=== PATIENT | female | born 1950 | race Caucasian/White ===

== ENCOUNTER → 2016-07-11 | Outpatient (CLI) | payer MEDICARE, BC, OTHER ==
--- NOTE | 2016-07-11 10:58 | REPMRS ---
Patient History The patient states she has not had a clinical breast exam in over a year. No known family history of cancer. Digital Woman Screen Mammo: July 11, 2016 - Exam #: [id number] Bilateral CC and MLO view(s) were taken. Technologist: Eleni Carlson, Technologist Prior study comparison: January 26, 2015, digital woman screen mammo performed at [facility] to [facility]. June 28, 2013, digital woman screen mammo performed at [facility] to [facility]. FINDINGS: The breast tissue is heterogeneously dense. This may lower the sensitivity of mammography. There has been no change in the appearance of the mammogram from the prior studies. There is a moderate amount of residual fibroglandular tissue which is fairly symmetric. There is no interval development of dominant mass, areas of architectural distortion, or clustered microcalcification typical of malignancy. ASSESSMENT: BI-RADS/ACR category 1 mammogram. Negative. Recommendation Routine screening mammogram in 1 year (for women over age 40). This mammogram was interpreted with the aid of an FDA-approved computer-aided dectection system. Electronically Signed By: Valdez Currie MD 07/11/16 [id number]
== END ==
LOC: M WHC 10:22
PROVIDERS: ATTEND Emergency Medicine
DX: Z12.31 Encounter for screening mammogram for malignant neoplasm of breast (principal); I10 Essential (primary) hypertension; E78.2 Mixed hyperlipidemia; E55.9 Vitamin D deficiency, unspecified
CPT/HCPCS: 36415; 80053; 80061; 82306; G0202

== ENCOUNTER → 2016-07-11 | Outpatient (CLI) | payer MEDICARE, BC, OTHER ==
[2016-07-11 10:27] LABS: ALBUMIN 3.7 GM/DL (3.2-5.2); ALBUMIN/GLOBULIN RATIO 1.16 (1.00-1.93); ALKALINE PHOSPHATASE 83 U/L (45-117); ALT/SGPT 124 U/L (12-78); ANION GAP 6 MEQ/L (8-16); AST/SGOT 69 U/L (15-37); BILIRUBIN,TOTAL 0.5 MG/DL (0.2-1.0); BLOOD UREA NITROGEN 17 MG/DL (7-18); CALCIUM LEVEL 8.7 MG/DL (8.8-10.2); CARBON DIOXIDE LEVEL 29 MEQ/L (21-32); CHLORIDE LEVEL 109 MEQ/L (98-107); CHOLESTEROL LEVEL 148 MG/DL (<200); GLOMERULAR FILTRATION RATE > 60.0 (>45); GLUCOSE, FASTING 88 MG/DL (80-110); POTASSIUM SERUM 4.1 MEQ/L (3.5-5.1); SODIUM LEVEL 144 MEQ/L (136-145); TOTAL PROTEIN 6.9 GM/DL (6.4-8.2); TRIGLYCERIDES LEVEL 83 MG/DL (<150)
== END ==
LOC: M LAB 09:19
PROVIDERS: ATTEND Emergency Medicine
DX: I10 Essential (primary) hypertension (principal); E78.2 Mixed hyperlipidemia; E55.9 Vitamin D deficiency, unspecified

== ENCOUNTER → 2016-08-25 | Outpatient (CLI) | payer MEDICARE, BC, OTHER ==
[~2016-08-25] MED LIST: ATOR1TAB19 PO; CALC600T10 PO; CALCCHW8 PO; LASI20TA PO; LOSA50TA20 PO; MULT1TAB18 PO; VITA200016 PO; ZOFR4TAB3 PO
--- NOTE | 2016-08-25 10:01 | REP ---
KUB, ONE VIEW: HISTORY: Constipation. A small amount of air is present in small and large intestine. There are no air fluid levels or dilated loops of intestine. There is no pneumoperitoneum. Degenerative change is present in the spine. IMPRESSION: Nonspecific bowel gas pattern. Signed by Papito Brito MD 08/25/2016 10:02 A
== END ==
LOC: M RAD 09:28
PROVIDERS: ATTEND Family Medicine
DX: K59.00 Constipation, unspecified (principal)

== ENCOUNTER 2016-08-29 13:53 | Inpatient (IN) | payer MEDICARE, BC, OTHER ==
[~2016-08-29] VITALS: Ht 157.5 cm; Wt 58.0 kg
[2016-08-29] MEDS ORDERED: MULT1TAB18 PO (14:05)
[2016-08-29] MEDS ORDERED: VITA200016 PO (14:05)
[2016-08-29] MEDS ORDERED: LOSA50TA20 PO (14:05)
[2016-08-29] MEDS ORDERED: ATOR1TAB19 PO (14:05)
[2016-08-29] MEDS ORDERED: NS 1,000 ML IV ONE (15:00)
[2016-08-29] MEDS ORDERED: ONDANSETRON 4MG/2ML VIAL (J2405) IV ONE (15:00)
[2016-08-29] MEDS ORDERED: GASTROGRAFIN SOLUTION 30ML (Q9963) As Ordered ONE (15:07)
[2016-08-29 15:19] LABS: BASO % 0.5 % (0.0-1.0); EOS # 0.1 K/mm3 (0.0-0.50); EOS % 1.5 % (0.0-3.0); LARGE UNSTAINED CELL # 0.1 K/mm3 (0.0-0.4); LARGE UNSTAINED CELL % 0.9 % (0.0-4.0); LYMPH # 1.3 K/mm3 (1.5-4.5); LYMPH % 18.8 % (24.0-44.0); MEAN CORPUSCULAR HEMOGLOBIN 28.2 pg (27.0-33.0); MEAN CORPUSCULAR HGB CONC 32.9 g/dl (32.0-36.5); MEAN CORPUSCULAR VOLUME 85.7 fl (80.0-96.0); MONO # 0.5 K/mm3 (0.0-0.8); MONO % 7.2 % (0.0-5.0); NEUTROPHILS # 4.6 K/mm3 (1.8-7.7); NEUTROPHILS % 71.1 % (36.0-66.0); PLATELET COUNT, AUTOMATED 393 k/mm3 (150-450); RED CELL DISTRIBUTION WIDTH 12.2 % (11.5-14.5); WHITE BLOOD COUNT 6.4 K/mm3 (4.0-10.0)
[2016-08-29] MEDS ORDERED: GASTROGRAFIN SOLUTION 30ML (Q9963) PO ONE ×2 (15:20→15:50)
[2016-08-29 15:51] LABS: ALBUMIN 3.1 GM/DL (3.2-5.2); ALBUMIN/GLOBULIN RATIO 0.72 (1.00-1.93); ALKALINE PHOSPHATASE 80 U/L (45-117); ALT/SGPT 34 U/L (12-78); AMYLASE 60 U/L (25-115); ANION GAP 9 MEQ/L (8-16); AST/SGOT 45 U/L (15-37); BILIRUBIN,DIRECT 0.1 MG/DL (0.0-0.2); BILIRUBIN,TOTAL 0.4 MG/DL (0.2-1.0); BLOOD UREA NITROGEN 15 MG/DL (7-18); CARBON DIOXIDE LEVEL 27 MEQ/L (21-32); CHLORIDE LEVEL 102 MEQ/L (98-107); CREATININE FOR GFR 0.97 MG/DL (0.55-1.02); GLOMERULAR FILTRATION RATE > 60.0 (>45); GLUCOSE, FASTING 101 MG/DL (80-110); POTASSIUM SERUM 3.7 MEQ/L (3.5-5.1); SODIUM LEVEL 138 MEQ/L (136-145); TOTAL PROTEIN 7.4 GM/DL (6.4-8.2)
[2016-08-29] MEDS ORDERED: ISOVUE-370 76% 100ML VIAL (Q9967) As Ordered ONE (16:45)
[2016-08-29] MEDS ORDERED: CALCCHW8 PO (18:06)
[2016-08-29] MEDS ORDERED: CALC600T10 PO (18:07)
--- NOTE | 2016-08-29 20:02 | HPEPDOC ---
General Date of Admission Primary Care Physician: JESSICA CHAUDHARY MD Attending Physician: PABLO HERNANDES MD Chief Complaint The patient is a 65-year-old female admitted with a reason for visit of Abd Pain. Source: Patient, Family, RN notes reviewed, Old records Exam Limitations: No limitations Timing/Duration: Week(s) (he) Associated Symptoms: Cough, Chills (intermittent, sometimes teeth rattling), Loss of appetite, Shortness of breath, Weakness History of Present Illness Ms. Oliveira is a 65-year-old female who presents to [facility]'s emergency Department with abdominal pain and bloating. She is accompanied by her . Past medical history significant for hypertension, dyslipidemia, history of hypoglycemia, osteopenia, history of fecal incontinence, history of hyperplastic polyp. Patient states that prior to 3 weeks ago she was in good health when she developed "pressure in her butt" that she thought felt somewhat like constipation. Patient took milk of magnesia and subsequently had 2 episodes of nonbloody, mucoid, loose diarrhea. She has since had 5-10 daily episodes of loose, mucoid, nonbloody diarrhea. She states that she felt as if she was coming down with a viral syndrome or upper respiratory infection she developed a runny nose, nonproductive cough, and some mild throat pain. She also developed to cold sores on her lower lip for which she took Abreva. She presented to her primary care provider's office last week where an abdominal x- ray was obtained. Per patient, no stool was identified on x-ray and patient was advised to start a probiotic. Over the last week patient has had intermittent and inconsistent crampy abdominal pain and over the last 4 days has had a nonproductive cough with shortness of breath. Patient presented to primary care provider today and was advised to present to the emergency department. Besides positive review of systems listed above all other review of systems were negative. Hospitalist service was consulted and patient was subsequently admitted for further medical management. Home Medications Scheduled (Multi Vitamin) 1 Tab Tab, 1 TAB PO DAILY, (Reported) Atorvastatin Calcium (Atorvastatin Calcium) 10 Mg Tab, 10 MG PO DAILY, (Reported ) Calcium (Calcium) 600 Mg Tab, 1,200 MG PO DAILY, (Reported) Losartan Potassium (Losartan Potassium) 50 Mg Tab, 50 MG PO DAILY, (Reported) Vitamin D (Vitamin D) 2,000 Unit Cap, 2,000 UNIT PO DAILY, (Reported) Allergies Coded Allergies: Amoxicillin (Verified Allergy, Intermediate, RASH, 08/29/16) Past Medical History Medical History 1. Hypertension 2. Dyslipidemia 3. History of hypoglycemia 4. Osteopenia based on bone density scan 5. History of fecal incontinence 6. History of hyperplastic colonic polyp Surgical History 1. Colonoscopy 2. [employer] osteotomy 3. [employer] bunionectomy on the left 4. Encapsulated bartholian gland removal 5. 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 and international travel, most recent travel to [facility] 2 years ago Admits to a cat in the home Denies environmental exposures Review of Symptoms Constitutional: Reports: Chills (intermittent bone rattling chills), Weakness, Denies: Fever, Night Sweats Eyes: Denies: Vision change, Other (denies blurry vision, transient vision loss ) ENT: Reports: Sore Throat, Denies: Head Aches, Sinus Congestion, Post Nasal Drip, Epistaxis Skin: Denies: Rash, Lesions Pulmonary: Reports: Dyspnea, Cough (nonproductive), Denies: Pleuritic Chest Pain Cardiovascular: Denies: Chest Pain, Palpitations, Orthopnea, Paroxysmal Noc. Dyspnea, Edema, Lt Headedness Gastrointestinal: Reports: Diarrhea (5-10 daily episodes of nonbloody, loose, mucoid diarrhea), Other Symptoms (abdominal bloating), Denies: Nausea, Vomiting, Abdominal Pain, Constipation, Melena, Hematochezia Genitourinary: Denies: Dysuria, Frequency, Incontinence, Hematuria Hematologic: Denies: Bruising Endocrine: Reports: Polydipsia, Denies: Polyphagia Musculoskeletal: Reports: Other Symptoms (leg cramps), Denies: Neck Pain, Back Pain, Muscle Pain Neurological: Reports: Weakness, Denies: Numbness Physical Examination General Exam: Positive: Alert, Cooperative, No Acute Distress Eye Exam: Positive: PERRLA, Conjunctiva & lids normal, EOMI, Negative: Sclera icteric, Ptosis ENT Exam: Positive: Atraumatic, Mucous membr. moist/pink, Tongue Midline, Pharyngeal Edema (mild), Nares Patent Neck Exam: Positive: Supple, Negative: thyromegaly, +2 carotid pulse wo bruit, Lymphadenopathy Chest Exam: Positive: Clear to auscultation, Normal air movement, Diminished ( in the bilateral bases) Heart Exam: Positive: Rate Normal, Tachycardic, Regular Rhythm, Normal S1, Normal S2, Negative: Gallops, Murmurs, Rubs Telemetry: Positive: Tachycardia Abdomen Exam: Positive: Normal bowel sounds, Soft, Tenderness (to palpation), Other (distended, dull to percussion, rebound tenderness to the right quadrants) Extremity Exam: Positive: Normal pulses, Negative: Clubbing, Cyanosis, Edema Skin Exam: Positive: Nl turgor and temperature Neuro Exam: Positive: Normal Speech, Strength at 5/5 X4 ext Vital Signs Vital Signs Date Time Temp Pulse Resp B/P (MAP) Pulse Ox O2 Delivery O2 Flow Rate FiO2 08/29/16 15:19 08/29/16 13:54 97.3 114 16 97 Room Air Laboratory Data Labs 24H Laboratory Tests 2 08/29/16 15:03: Urine Appearance CLEAR, Urine Color YELLOW, Urine pH 6.0, Urine Specific [place] 1.015, Urine Protein NEGATIVE, Urine Glucose (UA) NEGATIVE, Urine Ketones NEGATIVE, Urine Urobilinogen 0.2, Urine Bilirubin NEGATIVE, Urine Leukocyte Esterase NEGATIVE, Urine Blood NEGATIVE, Urine Nitrite NEGATIVE, Urine WBC (Auto) 0, Urine RBC (Auto) 1, Urine Hyaline Casts (Auto) 2, Urine Bacteria (Auto) 1+H, Urine Squamous Epithelial Cells 0, Urine Mucus (Auto) SMALL , Urine Sperm (Auto) 08/29/16 15:10: White Blood Count 6.4, Red Blood Count 4.59, Hemoglobin 13.0, Hematocrit 39.3, Mean Corpuscular Volume 85.7, Mean Corpuscular Hemoglobin 28.2, Mean Corpuscular Hemoglobin Concent 32.9, Red Cell Distribution Width 12.2, Platelet Count 393, Neutrophils (%) (Auto) 71.1H, Lymphocytes (%) (Auto) 18.8L, Monocytes (%) (Auto) 7.2H, Eosinophils (%) (Auto) 1.5, Basophils (%) (Auto) 0.5 , Neutrophils # (Auto) 4.6, Lymphocytes # (Auto) 1.3L, Monocytes # (Auto) 0.5, Eosinophils # (Auto) 0.1, Basophils # (Auto) 0.0, Large Unclassified Cells % 0.9 , Large Unclassified Cells # 0.1, Anion Gap 9, Glomerular Filtration Rate > 60.0 , Calcium Level 9.0, Aspartate Amino Transf (AST/SGOT) 45H, Alanine Aminotransferase (ALT/SGPT) 34, Alkaline Phosphatase 80, Total Bilirubin 0.4, Direct Bilirubin 0.1, Total Protein 7.4, Albumin 3.1L, Albumin/Globulin Ratio 0.72L, Amylase Level 60, Lipase 157 CBC/BMP Laboratory Tests 08/29/16 15:10 Red Blood Count 4.59, Mean Corpuscular Volume 85.7, Mean Corpuscular Hemoglobin 28.2, Mean Corpuscular Hemoglobin Concent 32.9, Red Cell Distribution Width 12.2 , Neutrophils (%) (Auto) 71.1 H, Lymphocytes (%) (Auto) 18.8 L, Monocytes (%) ( Auto) 7.2 H, Eosinophils (%) (Auto) 1.5, Basophils (%) (Auto) 0.5, Neutrophils # (Auto) 4.6, Lymphocytes # (Auto) 1.3 L, Monocytes # (Auto) 0.5, Eosinophils # (Auto) 0.1, Basophils # (Auto) 0.0 RAD Interpretation STUDY: CT of the abdomen and pelvis with IV contrast Rad Actions: Wet Read Reviewed (6 cm L ovarian mass with ascites and B\\L pl effs and evidence of omental and peritoneal mets) Assessment/Plan Ms. Oliveira is a 65-year-old female with a past medical history significant for hypertension, dyslipidemia, history of hypoglycemia, osteopenia , history of fecal incontinence, history of hyperplastic polyp the presented with abdominal pain and bloating. CT of the abdomen and pelvis with IV contrast shows a left ovarian mass with ascites, bilateral pleural effusions, and omental and peritoneal metastasis. Diagnosis to be confirmed. Plan / VTE VTE Prophylaxis Ordered?: Yes (TEDs and sequentials with knee-high compression stockings) Plan Plan Abdominal pain Likely related to ascites secondary to left ovarian mass and omental and peritoneal metastasis. Therapeutic paracentesis ordered with evaluation of ascites fluid. Could consider CT-guided biopsy of left ovarian mass after therapeutic paracentesis with oncology consult. Could also consider obtaining CT of the chest with contrast and CT of the head without contrast to evaluate for metastasis. Obstetrics and gynecology consulted. Pleural effusions Likely secondary to abdominal ascites. Blood pressure stable at 140/78, so able to diurese fluid with Lasix. Diarrhea Obtaining GI panel and stool for occult blood to evaluate for potential causes for persistent nonbloody, loose, mucoid stools. Upper respiratory symptoms Symptoms of cough, runny nose, sore throat without white count or fever. Obtaining chest x-ray to evaluate for underlying respiratory illness. Hypertension Continue current home medication regimen. Dyslipidemia Continue current home medication regimen. Disposition Admitted to progressive care unit Anticipated hospitalization: 2 nights Attending: Dr. Grnat Solder Making Laborer: Obstetrics and gynecology CODE STATUS: DNR/DNI Diet: Continue Current (2 g sodium) Activity: Continue Current (activity as tolerated) Diagnostics: Check Labs, Repeat Labs in AM, Obtain Cultures Advanced Directives: Do Not Resuscitate (DNR), Do Not Intubate (DNI) EMIL SANTO-I August 29, 2016 20:01
[2016-08-29 22:20] VITALS: BP 126/64
[2016-08-29] MEDS ORDERED: SLF 3 ML SYR IV PRN (23:00)
[2016-08-29] MEDS: ACETAMINOPHEN TAB 650MG DOSE (2X325MG) PO PRN (23:24)
[2016-08-29] MEDS: FUROSEMIDE 40 MG/4 ML VIAL (J1940) IV SCH (23:25)
[2016-08-30] VITALS (9 sets, daily range): BP systolic 102–141; BP diastolic 58–71
[2016-08-30] MEDS: SLF 3 ML SYR IV SCH ×3 (05:42→21:23)
[2016-08-30 05:57] LABS: MEAN CORPUSCULAR HEMOGLOBIN 28.1 pg (27.0-33.0); MEAN CORPUSCULAR HGB CONC 32.7 g/dl (32.0-36.5); MEAN CORPUSCULAR VOLUME 85.9 fl (80.0-96.0); WHITE BLOOD COUNT 4.7 K/mm3 (4.0-10.0)
[2016-08-30 06:14] LABS: ANION GAP 10 MEQ/L (8-16); BLOOD UREA NITROGEN 11 MG/DL (7-18); CALCIUM LEVEL 8.4 MG/DL (8.8-10.2); CARBON DIOXIDE LEVEL 25 MEQ/L (21-32); CHLORIDE LEVEL 107 MEQ/L (98-107); CREATININE FOR GFR 0.91 MG/DL (0.55-1.02); GLOMERULAR FILTRATION RATE > 60.0 (>45); GLUCOSE, FASTING 94 MG/DL (80-110); POTASSIUM SERUM 3.7 MEQ/L (3.5-5.1); SODIUM LEVEL 142 MEQ/L (136-145)
--- NOTE | 2016-08-30 07:14 | REP ---
REASON: Distended abdomen. COMPARISON: None. Contrast 100 mL Isovue 370. Bilateral pleural effusions are present with suspected bilateral subsegmental atelectatic changes in the lung bases. Scattered low density lesions are seen throughout the liver. There is ascites. Within the peritoneum on the right, adjacent to the hepatic edge, there is a 1.6 cm sized nodular density. Also within the omentum, there is a broad-band omental cake. This nearly spans the breadth of the abdomen. The bowel loops are seen floating within the ascitic fluid. There is no intestinal obstruction. There is no evidence of free air. The pancreas, adrenal glands, and spleen are unremarkable. There are multiple bilateral renal cysts the largest of which is on the left measuring 6.2 cm. The abdominal aorta is within normal limits. There is a large mass in the pelvis on the left which measures 6.3 x 4.1 x 6 cm and is most consistent with an enhancing ovarian mass. Bone window technique throughout the exam shows the osseous structures to be within normal limits for the patient's age. IMPRESSION: 1. 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 Certainly, all of this needs to be correlated clinically. 2. Other findings as described above. Signed by Steffen Dela Cruz DO 08/30/2016 01:59 P
[2016-08-30] MEDS: FUROSEMIDE 40 MG/4 ML VIAL (J1940) IV SCH ×2 (08:16→21:24)
[2016-08-30] MEDS: LOSARTAN 50 MG TAB PO SCH (08:17)
[2016-08-30] MEDS: ATORVASTATIN 10 MG TAB PO SCH (08:17)
[2016-08-30] MEDS: VITAMIN D 1,000 INTERNATIONAL UNITS TABLET PO SCH (08:17)
--- NOTE | 2016-08-30 09:12 | REP ---
PORTABLE CHEST: AP portable view of the chest is performed and compared to prior study of 12/19/2011. There are moderate bilateral pleural effusions. There are mild bibasilar infiltrates/atelectasis. The heart is not significantly enlarged. IMPRESSION: Moderate bilateral effusions with adjacent bibasilar atelectasis/infiltrate. Signed by Valdez Currie MD 08/30/2016 04:05 P
[2016-08-30] MEDS ORDERED: DIAPER RELIEF OINT (DESITIN) 60GM TOP PRN (11:00)
[2016-08-30 13:07] LABS: RBC ASCITES FLUID < 10 (<10mm3 cells/uL); TNC ASCITES FLUID 591 cells/uL (0-20)
[2016-08-30 13:15] LABS: BF DIFF IF INDICATED? YES (NO)
[2016-08-30 13:22] LABS: SPEC. GRAVITY BODY FLUIDS 1.029 (NOT ESTABLISHED)
[2016-08-30 13:34] LABS: CC BF DIFF EXAM CYTOCENTRIFUGE
[2016-08-30 13:53] LABS: TOTAL PROTEIN, BODY FLUID 4.5 G/DL (NOT ESTABLISHED)
--- NOTE | 2016-08-30 14:31 | IPNPDOC ---
Date Seen The patient was seen on 08/30/16. Progress Note SUBJECTIVE: Ms. Oliveira is a 65-year-old female was evaluated at bedside this morning. She reports that her shortness of breath has improved secondary to the Lasix. Patient will be going for a therapeutic paracentesis later in the day. Oncology is also being consulted and will evaluate the patient later in the day. OBJECTIVE PHYSICAL EXAMINATION: VITAL SIGNS: Please see below. GENERAL: Pleasant female resting comfortably in hospital bed upon evaluation, well-nourished, well-developed, in no apparent distress HEENT: Atraumatic, normocephalic, PERRL, EOMI, oral mucosa appears pink and moist, nasal septum appears midline CARDIOVASCULAR: Regular rate and rhythm, normal S1 and S2, no murmur, rub, click appreciated RESPIRATORY: Clear to auscultation bilaterally, adequate inspiratory and expiratory airway excursion, still somewhat diminished airway excursion in the bases bilaterally ABDOMINAL: Skin appears warm, dry, intact, mildly distended, dull to percussion throughout, no bruits appreciated, some resistance noted with palpation throughout bowel sounds appreciated EXTREMITIES: All 4 extremities appropriately, peripheral pulses appreciated bilaterally in upper and lower extremities, equal, symmetrical, +2/4 NEUROLOGICAL: Cranial nerves II through XII appear grossly intact PSYCHOLOGICAL: Alert and affect appear appropriate LABORATORY DATA: Please see below. MICROBIOLOGY: Please see below. DVT prophylaxis ordered?: TEDs and sequentials with knee-high compression stockings ASSESSMENT AND PLAN: Ms. Oliveira is a 65-year-old female with a past medical history significant for hypertension and dyslipidemia who presented with persistent diarrhea, abdominal pain and bloating, and found to have a 6 cm left ovarian mass with abdominal ascites and omental and peritoneal metastasis. PROBLEMS: 1. Abdominal ascites: Therapeutic paracentesis performed with SAAG analysis of 0.6. Abdominal ascites less likely a result of portal hypertension. Cytology and pathology are pending. More likely result of metastatic disease. Oncology has been consulted and will evaluate patient. CA-125 3920.6. 2. Bilateral pleural effusions: Patient reports subjective improvement with Lasix. Decrease shortness of breath. Continue with Lasix. 3. Fever: 100.6 overnight. Treated with Tylenol. Resolved. 4. Diarrhea: GI panel was negative. Desitin has been added secondary to cutaneous irritation. 5. Hypertension: Continue patient on Cozaar. 6. Dyslipidemia: Continue patient on Lipitor. DISPOSITION: Currently admitted to progressive care unit. Therapeutic paracentesis performed. Verbally discussed obtaining ovarian mass biopsy with radiology. Their suggestion was to refer patient as biopsy here might results in rupture of the mass. Oncology to evaluate patient. Potential discharge in the next 24 hours. VS, I&O, 24H, Fishbone Vital Signs/I&O Vital Signs Date Time Temp Pulse Resp B/P (MAP) Pulse Ox O2 Delivery O2 Flow Rate FiO2 08/30/16 13:45 99.4 89 18 123/58 (79) 94 Room Air I&O- Last 24 Hours up to 6 AM 08/30/16 06:00 Output Total 700 ml Balance -700 ml Laboratory Data 24H LABS Laboratory Tests 2 08/29/16 15:03: Urine Appearance CLEAR, Urine Color YELLOW, Urine pH 6.0, Urine Specific [place] 1.015, Urine Protein NEGATIVE, Urine Glucose (UA) NEGATIVE, Urine Ketones NEGATIVE, Urine Urobilinogen 0.2, Urine Bilirubin NEGATIVE, Urine Leukocyte Esterase NEGATIVE, Urine Blood NEGATIVE, Urine Nitrite NEGATIVE, Urine WBC (Auto) 0, Urine RBC (Auto) 1, Urine Hyaline Casts (Auto) 2, Urine Bacteria (Auto) 1+H, Urine Squamous Epithelial Cells 0, Urine Mucus (Auto) SMALL , Urine Sperm (Auto) 08/29/16 15:10: White Blood Count 6.4, Red Blood Count 4.59, Hemoglobin 13.0, Hematocrit 39.3, Mean Corpuscular Volume 85.7, Mean Corpuscular Hemoglobin 28.2, Mean Corpuscular Hemoglobin Concent 32.9, Red Cell Distribution Width 12.2, Platelet Count 393, Neutrophils (%) (Auto) 71.1H, Lymphocytes (%) (Auto) 18.8L, Monocytes (%) (Auto) 7.2H, Eosinophils (%) (Auto) 1.5, Basophils (%) (Auto) 0.5 , Neutrophils # (Auto) 4.6, Lymphocytes # (Auto) 1.3L, Monocytes # (Auto) 0.5, Eosinophils # (Auto) 0.1, Basophils # (Auto) 0.0, Large Unclassified Cells % 0.9 , Large Unclassified Cells # 0.1, Anion Gap 9, Glomerular Filtration Rate > 60.0 , Calcium Level 9.0, Aspartate Amino Transf (AST/SGOT) 45H, Alanine Aminotransferase (ALT/SGPT) 34, Alkaline Phosphatase 80, Total Bilirubin 0.4, Direct Bilirubin 0.1, Total Protein 7.4, Albumin 3.1L, Albumin/Globulin Ratio 0.72L, Amylase Level 60, Lipase 157 08/30/16 05:24: Anion Gap 10, Glomerular Filtration Rate > 60.0, Calcium Level 8.4L, Blood Urea Nitrogen 11, Creatinine 0.91, Sodium Level 142, Potassium Level 3.7, Chloride Level 107, Carbon Dioxide Level 25 08/30/16 10:58: CA 125 Antigen 3920.6H 08/30/16 12:20: Body Fluid Source ASCITES, Body Fluid Color PALE YELLOW, Body Fluid Appearance HAZY, Body Fluid Specific [place] 1.029, Body Fluid RBC (Auto) < 10, Body Fluid Total Nucleated Cells 591H, Body Fluid Neutrophils 2, Body Fluid Lymphocytes 64 , Body Fluid Monocytes/Macrophages 34, Body Fluid Glucose Source ASCITES, Body Fluid Glucose 106, Body Fluid Protein Source ASCITES, Body Fluid Total Protein 4.5, Body Fluid Albumin Source ASCITES, Body Fluid Albumin 2.5 CBC/BMP Laboratory Tests 08/29/16 15:10 Red Blood Count 4.59, Mean Corpuscular Volume 85.7, Mean Corpuscular Hemoglobin 28.2, Mean Corpuscular Hemoglobin Concent 32.9, Red Cell Distribution Width 12.2 , Neutrophils (%) (Auto) 71.1 H, Lymphocytes (%) (Auto) 18.8 L, Monocytes (%) ( Auto) 7.2 H, Eosinophils (%) (Auto) 1.5, Basophils (%) (Auto) 0.5, Neutrophils # (Auto) 4.6, Lymphocytes # (Auto) 1.3 L, Monocytes # (Auto) 0.5, Eosinophils # (Auto) 0.1, Basophils # (Auto) 0.0 08/30/16 05:24 Red Blood Count 3.97 L, Mean Corpuscular Volume 85.9, Mean Corpuscular Hemoglobin 28.1, Mean Corpuscular Hemoglobin Concent 32.7, Red Cell Distribution Width 12.0, Calcium Level 8.4 L Microbiology Microbiology 08/30/16 Acid Fast Stain, Received Pending 08/30/16 Mycobacterial Culture, Received Pending 08/30/16 Gram Stain, Received Pending 08/30/16 Body Fluid Culture, Received Pending 08/30/16 Gastrointestinal Tract Panel (PCR) - Final, Complete EMIL SANTO-Michelle August 30, 2016 14:31
[2016-08-30] MEDS: ACETAMINOPHEN TAB 650MG DOSE (2X325MG) PO PRN (21:28)
[2016-08-30] MEDS ORDERED: ISOVUE-370 76% 100ML VIAL (Q9967) As Ordered ONE (22:52)
--- NOTE | 2016-08-30 23:20 | REPUSA ---
CT angiogram of the chest Clinical statement: metastasis, shortness of breath. Technique: Multiple axial CT images were obtained from the thoracic inlet through the upper abdomen a fter a bolus administration of nonionic intravenous contrast. Coronal and sagittal reconstructions we re also obtained. Comparison: None. Findings: The pulmonary arteries are well-opacified with contrast, with no intraluminal filling defec ts to suggest embolism. The thoracic aorta is unremarkable. Thyroid gland is within normal limits. Th ere is no thoracic lymphadenopathy. There are moderate sized bilateral pleural effusions with lower l obe atelectasis. Limited imaging of the upper abdomen demonstrates moderate abdominal ascites. Cysts are seen within both kidneys and the liver. There are no suspicious osseous lesions. Impression: 1. No evidence of pulmonary embolism. 2. No evidence for metastatic disease. 3. Moderate sized bilateral pleural effusions and lower lobe atelectasis/infiltrate. 4. Simple cyst seen within the liver and both kidneys. 5. Small amount of upper abdominal ascites.
[2016-08-31 03:25] VITALS: BP 122/65
[2016-08-31] MEDS: SLF 3 ML SYR IV SCH (05:48)
--- NOTE | 2016-08-31 05:59 | REP ---
ULTRASOUND GUIDED PARACENTESIS: The procedure was performed under the direct supervision of Dr. Currie. The risks and benefits of the procedure were explained to the patient and informed consent was obtained. The largest pocket of fluid was localized in the right flank using ultrasound guidance. The skin was prepped and draped in a sterile fashion. 1% lidocaine was used as a local anesthetic. An 8-Bulgarian multi-side hole catheter was inserted using trocar technique. 3750 mL of yellow fluid was withdrawn and sent to the lab. The patient tolerated the procedure well and there were no immediate complications. Reviewed by FROILAN Cesar 08/31/2016 03:36 PEdited and Signed by Vadlez Currie MD 08/31/2016 04:50 P
[2016-08-31 06:12] LABS: MEAN CORPUSCULAR HEMOGLOBIN 28.1 pg (27.0-33.0); MEAN CORPUSCULAR VOLUME 85.3 fl (80.0-96.0); RED CELL DISTRIBUTION WIDTH 12.2 % (11.5-14.5); WHITE BLOOD COUNT 6.5 K/mm3 (4.0-10.0)
[2016-08-31 06:21] LABS: ANION GAP 9 MEQ/L (8-16); BLOOD UREA NITROGEN 13 MG/DL (7-18); CALCIUM LEVEL 8.2 MG/DL (8.8-10.2); CARBON DIOXIDE LEVEL 26 MEQ/L (21-32); CHLORIDE LEVEL 103 MEQ/L (98-107); CREATININE FOR GFR 0.92 MG/DL (0.55-1.02); GLOMERULAR FILTRATION RATE > 60.0 (>45); GLUCOSE, FASTING 90 MG/DL (80-110); POTASSIUM SERUM 3.4 MEQ/L (3.5-5.1); SODIUM LEVEL 138 MEQ/L (136-145)
[2016-08-31] MEDS ORDERED: POTASSIUM CHLORIDE 10 MEQ SR TABLET PO ONE (07:45)
[2016-08-31 08:00] VITALS: BP 127/67
[2016-08-31] MEDS ORDERED: LASI20TA PO (08:19)
[2016-08-31] MEDS ORDERED: ZOFR4TAB3 PO (08:43)
[2016-08-31 09:01] VITALS: BP 115/65
[2016-08-31] MEDS: VITAMIN D 1,000 INTERNATIONAL UNITS TABLET PO SCH (09:01)
[2016-08-31] MEDS: LOSARTAN 50 MG TAB PO SCH (09:01)
[2016-08-31] MEDS: ATORVASTATIN 10 MG TAB PO SCH (09:01)
[2016-08-31] MEDS: FUROSEMIDE 40 MG/4 ML VIAL (J1940) IV SCH (09:01)
--- NOTE | 2016-08-31 10:04 | CR ---
DATE OF CONSULTATION: 08/30/2016 MEDICAL ONCOLOGY INPATIENT CONSULTATION I was asked by the hospitalist service under Dr. Grant to consult on this patient for medical oncology management recommendations. Rand Oliveira is a 65-year-old woman at baseline very well, few medical problems, within the last month developed progressive fatigue, abdominal distention, a little shortness of breath, and finally some nausea and difficulty with bowel movements. She was seen a few times by her primary care doctor. Initially, some constipation diagnosed. She developed loose stool and was started on probiotics. Finally, her symptoms progressed, and she presented to her primary care provider yesterday with progressive abdominal discomfort, shortness of breath, and was referred to the hospital for admission. Abdomen and pelvis CT in the hospital demonstrated a large left adnexal mass up to 6.3 cm with enhancement, scattered low-density lesions throughout the liver, ascites in the peritoneum, and omental caking. Plain chest x-ray demonstrated bilateral pleural effusions moderate with mild basilar infiltrates. No obvious masses or cardiomegaly. CA-125 is 3920. A paracentesis has been performed, and cytology is pending. At baseline, Rand is retired, well fit, and busy, engaged in lots of civic activities. She has no strong family history of cancer, breast, or ovarian cancer. PAST MEDICAL HISTORY: Hypertension, dyslipidemia, hypoglycemia, osteopenia, colon polyps, fecal incontinence. PAST SURGICAL HISTORY: Colonoscopy, osteotomy, bunionectomy, Bartholin gland removal, partial hysterectomy. ALLERGIES: Are to amoxicillin. HOME MEDICATIONS: - calcium 600 mg two tablets daily - losartan 50 mg daily - vitamin D 2000 international units daily SOCIAL HISTORY: Never smoker. Rare alcohol. Retired. Lives with her in [place]. FAMILY HISTORY: A maternal grandmother had pancreatic cancer and lung cancer. No other cancers in the family. REVIEW OF SYSTEMS: The patient acknowledges gradual abdominal distention in the last week. Prior to that, progressive fatigue, shortness of breath, and some chest discomfort. She denies vaginal bleeding, bloody stool, nausea, or vomiting until the last few days. She denies unintended weight loss recently. Remainder of 12-system review is negative. PHYSICAL EXAMINATION: Limited. Vital signs: Temperature 100.9, blood pressure 134/60, heart rate 100, respiratory rate 18, pulse oximetry 96. The patient's normal weight. Appearing middle-aged woman. Well-groomed. No distress. She is reclining in bed. On examination, she has mildly distended abdomen, which is soft and nontender. No rebound tenderness. No palpable mass. No inguinal adenopathy. There is 1+ bilateral pedal edema. LABORATORIES: Were reviewed. CBC notable for mild normocytic anemia, hemoglobin and hematocrit 11 and 34. Electrolytes normal. Albumin 3.1, AST 45. CA-125 3900. IMPRESSION: Metastatic ovarian cancer is the most likely diagnosis in this clinical setting. Primary fallopian tube or primary peritoneal adenocarcinoma are also in the differential diagnosis. However, clinically, with a CA-125 nearly 4000, dominant left adnexal mass. and bulky ascites with omental caking, a primary peritoneal-type carcinoma, such as ovarian fallopian tube is the most likely diagnosis. I discussed the case with Jose Bravo MD, of gynecology (CARDI[facility]ULMONARY SUPER[facility]OR) oncology in [place] after the patient said she would like to be seen by him. Typically, advanced ovarian carcinoma is treated with neoadjuvant chemotherapy, three cycles of carboplatin and Taxol, with good response. The patient to go to surgery for optimal debulking and then receive adjuvant chemotherapy, three more cycles of carboplatin and Taxol. A tissue diagnosis is optimal. If the paracentesis fails to reveal a diagnosis, thoracentesis could be performed; consideration of a liver biopsy could be made. Unfortunately, however, the liver nodules appear to be small. I discussed all of the above with Rand and her (with the exception of a potential liver biopsy). I recommend a CT of the chest to rule out a solid tumor in the chest, as this might become important prognostically and diagnostically. Beyond this, as long as she is feeling well, she could discharge and followup with me on Monday of next week. At that point, will have tissue biopsy, hopefully, and could proceed with neoadjuvant chemotherapy. The family was pleased with this plan. PLAN/RECOMMENDATIONS: 1. Chest CT with contrast, rule out solid metastatic lesion. Fully assess effusions. I discussed this with Dr. Grant, who will order the CT. 2. As long as the patient is comfortable and CT had been obtained, she could be discharged home with plan for Monday followup in my office. I have communicated with our nurse navigator, Yani Robles ([phone]), who will help set up the Monday appointment. If there is any doubt, please call Yani prior to the patient's discharge to make sure she has a firm appointment. 3. I spoke with the patient and her extensively tonight. We talked over many things, including the nature of her diagnosis, diagnostic workup, whether or not to see Dr. Bravo or another CARDIOPULMONARY SUPERVISOR oncologist in [place]. She has gotten a good recommendation by Dr. Bravo. I have already spoken with him at her request and with her approval, and we have a working plan that does not require her to be seen by CARDIOPULMONARY SUPERVISOR oncology at the outset as long as we feel confident about her diagnosis before starting empiric treatment. We can finalize all of this on the patient's followup with me on Monday in the office. Thank you for this consult. Please call me her Yani Robles with any interval issues. TIME STATEMENT: A total of 60 minutes was spent [id number] with the patient, more than 50% involved in counseling and coordination of care detailed in the note above. SINCERE
--- NOTE | 2016-08-31 16:22 | DS.PDOC ---
Discharge Summary General Date of Admission August 29, 2016 at 19:36 Date of Discharge 08/31/2016 Primary Care Physician: JESSICA CHAUDHARY MD Attending Physician: REINA MALONE MD Specialist/Consultants Involve: Thelma Wild MD Specialist/Consultants Involve Oncology Discharge Summary PROCEDURES PERFORMED DURING STAY: Ultrasound-guided paracentesis. ADMITTING DIAGNOSES: 1. Abdominal pain. 2. Shortness of breath secondary to pleural effusions. 3. Diarrhea. 4. Hypertension. 5. Dyslipidemia. DISCHARGE DIAGNOSES: 1. Abdominal ascites. 2. Bilateral pleural effusions. 3. Left ovarian mass with omental and peritoneal metastasis. 4. Hypertension. 5. Dyslipidemia. 6. Diarrhea. COMPLICATIONS/CHIEF COMPLAINT: Ascites; Ovarian Mass, Left. HISTORY OF PRESENT ILLNESS: Ms. Oliveira is a 65-year-old female who presents to [facility]'s emergency Department with abdominal pain and bloating. She is accompanied by her . Past medical history significant for hypertension, dyslipidemia, history of hypoglycemia, osteopenia, history of fecal incontinence, history of hyperplastic polyp. Patient states that prior to 3 weeks ago she was in good health when she developed "pressure in her butt" that she thought felt somewhat like constipation. Patient took milk of magnesia and subsequently had 2 episodes of nonbloody, mucoid, loose diarrhea. She has since had 5-10 daily episodes of loose, mucoid, nonbloody diarrhea. She states that she felt as if she was coming down with a viral syndrome or upper respiratory infection she developed a runny nose, nonproductive cough, and some mild throat pain. She also developed to cold sores on her lower lip for which she took Abreva. She presented to her primary care provider's office last week where an abdominal x- ray was obtained. Per patient, no stool was identified on x-ray and patient was advised to start a probiotic. Over the last week patient has had intermittent and inconsistent crampy abdominal pain and over the last 4 days has had a nonproductive cough with shortness of breath. Patient presented to primary care provider today and was advised to present to the emergency department. Besides positive review of systems listed above all other review of systems were negative. Hospitalist service was consulted and patient was subsequently admitted for further medical management. HOSPITAL COURSE: CT of the abdomen and pelvis performed in the emergency department with the result reported below. Patient was admitted to the progressive care unit. Therapeutic paracentesis was performed and 3750mL of straw-colored fluid was drained. Fluid analysis was not likely secondary to portal hypertension according to his [facility] evaluation. Cytology and pathology were sent. Patient's shortness of breath significantly resolved secondary to Lasix administration for bilateral pleural effusions. Patient experienced erythema and irritation to rectal area secondary to diarrhea which was acutely treated with topical cream. Patient reports improvement in symptoms. Patient reported that cough improved during hospitalization as well. Oncology was consulted and recommended obtaining a CA-125, CT of the chest. Oncology had a lengthy discussion with patient about her best available options. CA-125 was obtained and was 3920.06. CT of the chest was also obtained and report is resulted below. Patient shortness of breath and abdominal pain improved significantly. Patient had a febrile episode which was controlled with Tylenol. Hypertension and dyslipidemia were treated with current home medication regimen. Patient improved significantly during her short hospitalization, however just prior to discharge patient had an isolated event of vomiting, nonbilious, nonbloody secondary to taking a sip of water and went down the trachea and stated the esophagus. Patient denied nausea after episode of vomiting and reports that she is at her baseline like to continue with the discharge. Based on clinical evaluation patient was stable for discharge. DISCHARGE MEDICATIONS: Please see below. ALLERGIES: Please see below. PHYSICAL EXAMINATION ON DISCHARGE: VITAL SIGNS: Please see below. GENERAL: Well-nourished, well-developed female resting comfortably in hospital bed upon evaluation and in no apparent distress HEENT: Atraumatic, normocephalic, PERRL, EOMI, oral mucosa appears pink and moist, nasal septum appears midline, nares are patent NECK: Soft, supple, trachea midline, no lymphadenopathy appreciated CARDIOVASCULAR EXAMINATION: Regular rate and rhythm, normal S1 and S2, no murmur , rub, click appreciated RESPIRATORY EXAMINATION: Clear to auscultation bilaterally, adequate inspiratory and expiratory airway excursion, no wheeze, rhonchi, crackles appreciated ABDOMINAL EXAMINATION: Mild distention appears improved, soft, nontender, bowel sounds appreciated EXTREMITIES: Moving all 4 extremities appropriately, skin is warm, dry, intact, upper and lower extremity pulses are appreciated bilaterally, equal, symmetrical , +2/4, no edema SKIN: Warm, dry, intact, no lesions central rashes appreciated NEUROLOGICAL EXAMINATION: Cranial nerves II through XII appear grossly intact PSYCHIATRIC EXAMINATION: Mood and affect appear appropriate LABORATORY DATA: Please see below. IMAGING: CT of the abdomen and pelvis with IV and oral contrast Bilateral pleural effusions are present with suspected bilateral subsegmental atelectatic changes in the lung bases. Scattered low density lesions are seen throughout the liver. There is ascites. Within the peritoneum on the right, adjacent to the hepatic edge, there is a 1.6 cm sized nodular density. Also within the omentum, there is a broad-band omental cake. This nearly spans the breadth of the abdomen. The bowel loops are seen floating within the ascitic fluid. There is no intestinal obstruction. There is no evidence of free air. The pancreas, adrenal glands, and spleen are unremarkable. There are multiple bilateral renal cysts the largest of which is on the left measuring 6.2 cm. The abdominal aorta is within normal limits. There is a large mass in the pelvis on the left which measures 6.3 x 4.1 x 6 cm and is most consistent with an enhancing ovarian mass. Bone window technique throughout the exam shows the osseous structures to be within normal limits for the patient's age. Portable chest x-ray IMPRESSION: Moderate bilateral effusions with adjacent bibasilar atelectasis/infiltrate. CT of the chest with contrast IMPRESSION: 1. No evidence of pulmonary embolism. 2. No evidence for metastatic disease. 3. Moderate sized bilateral pleural effusions and lower lobe atelectasis/ infiltrate. 4. Simple cyst seen within the liver and both kidneys. 5. Small amount of upper abdominal ascites. PROGNOSIS: Stable. ACTIVITY: As tolerated. DIET: 2 g sodium. DISCHARGE PLAN: Follow discharge instructions. DISPOSITION: Home, Self-Care. DISCHARGE INSTRUCTIONS: 1. Continue Tylenol as needed for fever, do not exceed more than 4 g of Tylenol in a 24-hour period. 2. Continue Lasix 20 mg twice a day for 5 days. 3. Zofran as needed for nausea. 4. Return to the emergency department if any of the following occur: increased or worsening shortness of breath, continued or persistent fever, continued or persistent vomiting. ITEMS TO FOLLOWUP ON ON OUTPATIENT: 1. Follow-up with Dr. Chaudhary on 09/01/2016 at 1:45 PM. 2. Follow-up with Dr. Wild on 09/05/2016 at 9:15 AM. 3. Referral to Dr. Montiel, [facility]. DISCHARGE CONDITION: Stable. TIME SPENT ON DISCHARGE: Greater than 30 minutes. Vital Signs/I&Os Vital Signs Date Time Temp Pulse Resp B/P (MAP) Pulse Ox O2 Delivery O2 Flow Rate FiO2 08/31/16 09:01 115/65 08/31/16 08:00 99.9 107 18 95 Room Air I&O- Last 24 Hours up to 6 AM 08/31/16 06:00 Intake Total 720 ml Output Total 1350 ml Balance -630 ml Laboratory Data Labs 24H Laboratory Tests 2 08/31/16 05:36: Anion Gap 9, Glomerular Filtration Rate > 60.0, Blood Urea Nitrogen 13, Creatinine 0.92, Sodium Level 138, Potassium Level 3.4L, Chloride Level 103, Carbon Dioxide Level 26, Calcium Level 8.2L CBC/BMP Laboratory Tests 08/31/16 05:36 Red Blood Count 4.29, Mean Corpuscular Volume 85.3, Mean Corpuscular Hemoglobin 28.1, Mean Corpuscular Hemoglobin Concent 33.0, Red Cell Distribution Width 12.2 , Calcium Level 8.2 L Microbiology Microbiology 08/30/16 Acid Fast Stain, Received Pending 08/30/16 Mycobacterial Culture, Received Pending 08/30/16 Gram Stain - Final, Resulted 08/30/16 Body Fluid Culture, Resulted Pending 08/31/16 Stool Occult Blood (SHASHANK) - Final, Complete 08/30/16 Gastrointestinal Tract Panel (PCR) - Final, Complete Discharge Medications Scheduled (Multi Vitamin) 1 Tab Tab, 1 TAB PO DAILY, (Reported) Atorvastatin Calcium (Atorvastatin Calcium) 10 Mg Tab, 10 MG PO DAILY, (Reported ) Calcium (Calcium) 600 Mg Tab, 1,200 MG PO DAILY, (Reported) Furosemide (Lasix) 20 Mg Tab, 20 MG PO BID Losartan Potassium (Losartan Potassium) 50 Mg Tab, 50 MG PO DAILY, (Reported) Vitamin D (Vitamin D) 2,000 Unit Cap, 2,000 UNIT PO DAILY, (Reported) Scheduled PRN Ondansetron (Zofran Odt) 4 Mg Tab, 4 MG PO Q4H PRN for NAUSEA Allergies Coded Allergies: Amoxicillin (Verified Allergy, Intermediate, RASH, 08/29/16) EMIL SANTO-Michelle August 31, 2016 16:22
== END 2016-08-31 10:44 | disposition home or self-care (01) | DRG 755 ==
LOC: M ED 15:50 → M ED INP 19:36 → M PCU 22:10
PROVIDERS: ADMIT Internal Medicine; ATTEND Internal Medicine
PROC: 0W9G3ZX Drainage of Peritoneal Cavity, Percutaneous Approach, Diagnostic (ICD-10-PCS; principal; 2016-08-30)
DX: C56.2 Malignant neoplasm of left ovary (principal); C78.6 Secondary malignant neoplasm of retroperitoneum and peritoneum; R18.8 Other ascites; J90 Pleural effusion, not elsewhere classified; I10 Essential (primary) hypertension; E78.5 Hyperlipidemia, unspecified; M85.80 Other specified disorders of bone density and structure, unspecified site; Z79.899 Other long term (current) drug therapy; Z88.0 Allergy status to penicillin

== ENCOUNTER → 2016-09-07 | Outpatient (REF) | payer MEDICARE, BC, OTHER | LOC: M LAB REF 12:38 | PROVIDERS: ATTEND Internal Medicine Medical Oncology | DX: C56.9 Malignant neoplasm of unspecified ovary (principal) ==

== ENCOUNTER → 2016-09-12 | Outpatient (REF) | payer MEDICARE, OTHER ==
[2016-09-12 13:34] LABS: INR 1.01
== END ==
LOC: M LAB REF 12:57
PROVIDERS: ATTEND Internal Medicine Medical Oncology
DX: C56.9 Malignant neoplasm of unspecified ovary (principal)

== ENCOUNTER → 2016-09-15 | Outpatient (CLI) | payer MEDICARE, BC, OTHER ==
--- NOTE | 2016-09-15 13:48 | REP ---
Chest x-ray: Two views. History: Evaluation post right thoracentesis done under ultrasound guidance. Comparison chest x-ray September 12, 2016. Findings: The right pleural effusion is much improved. There is some plate-like atelectasis in the right base. There is no evidence of pneumothorax. There is a small left pleural effusion, which is essentially unchanged from the September 12, 2016 study. Heart is not enlarged. Lung javier are otherwise clear. Impression: Small bilateral pleural effusions, improved on the right post thoracentesis. Mild plate-like atelectasis right base. No complication observed. Signed by Kevin Gauthier MD 09/15/2016 02:50 P
--- NOTE | 2016-09-15 16:57 | REP ---
ULTRASOUND GUIDED LEFT THORACENTESIS: The procedure was performed under the direct supervision of Dr. Gauthier. The risks and benefits of the procedure were explained to the patient and informed consent was obtained. The left pleural effusion was localized using ultrasound guidance. The skin was prepped and draped in a sterile fashion. 1% Lidocaine was used as a local anesthetic. An 8-Serbian [id number] catheter was inserted using trocar technique. 1100 mL of kriss colored fluid was withdrawn with a sample sent to the lab for analysis. The patient tolerated the procedure well and there were no immediate complications. Reviewed by FROILAN Cesar 09/15/2016 05:20 PEdited and Signed by Kevin Gauthier MD 09/16/2016 10:17 A
== END | disposition home or self-care (01) ==
LOC: M RADPRO 12:16
PROVIDERS: ATTEND Internal Medicine Medical Oncology
DX: C78.2 Secondary malignant neoplasm of pleura (principal); J90 Pleural effusion, not elsewhere classified; J98.11 Atelectasis; C56.9 Malignant neoplasm of unspecified ovary

== ENCOUNTER → 2016-09-16 | Outpatient (REF) | payer MEDICARE, BC, OTHER ==
[2016-09-16 13:28] LABS: INR 0.99
== END ==
LOC: M LAB REF 12:21
PROVIDERS: ATTEND Internal Medicine Medical Oncology
DX: C56.9 Malignant neoplasm of unspecified ovary (principal); Z79.899 Other long term (current) drug therapy

== ENCOUNTER → 2016-09-20 | Outpatient (CLI) | payer MEDICARE, BC, OTHER ==
--- NOTE | 2016-09-20 16:27 | REP ---
LIMITED ABDOMINAL ULTRASOUND: HISTORY: Ascites. A mild to moderate amount of ascites is present in the abdomen and pelvis. IMPRESSION: There is mild to moderate amount of ascites. Signed by Papito Brito MD 09/20/2016 04:29 P
== END ==
LOC: M RADPRO 12:15
PROVIDERS: ATTEND Nurse Practitioner Family
DX: R18.0 Malignant ascites (principal); Z53.9 Procedure and treatment not carried out, unspecified reason

== ENCOUNTER → 2016-09-28 | Outpatient (REF) | payer MEDICARE, OTHER | LOC: M LAB REF 13:43 | PROVIDERS: ATTEND Internal Medicine Medical Oncology | DX: C56.9 Malignant neoplasm of unspecified ovary (principal) ==

== ENCOUNTER → 2016-10-19 | Outpatient (REF) | payer MEDICARE, OTHER | LOC: M LAB REF 13:32 | PROVIDERS: ATTEND Internal Medicine Medical Oncology | DX: C56.9 Malignant neoplasm of unspecified ovary (principal) ==

== ENCOUNTER → 2016-11-01 | Outpatient (REF) | payer MEDICARE, OTHER ==
[~2016-11-01] MED LIST changes: +BACT800T5 PO; -CALC600T10 PO; +CALC600T31 PO; +CARB50IN13 IV; +LOVE1INJ SC; +LOVE1INJ2 SC; +TAXOL
== END ==
LOC: M LAB REF 13:39
PROVIDERS: ATTEND Internal Medicine Medical Oncology
DX: C56.9 Malignant neoplasm of unspecified ovary (principal)

== ENCOUNTER → 2016-11-02 | Outpatient (CLI) | payer MEDICARE, BC, OTHER ==
[~2016-11-02] MED LIST changes: +GASTROGRAFIN SOLUTION 30ML (Q9963) As Ordered ONE; +ISOVUE-370 76% 100ML VIAL (Q9967) As Ordered ONE
--- NOTE | 2016-11-02 15:08 | REP ---
CT ABDOMEN PELVIS WITHOUT AND WITH IV CONTRAST: With oral contrast. HISTORY: Restaging ovarian carcinoma. Post chemotherapy. Comparison abdominal and pelvic CT study is from Aug [address] study showed a left adnexal mass with ascites and evidence of peritoneal metastatic disease. CT CONTRAST DOSE: 100 mL of intravenous Isovue 370. CT FINDINGS: Bilateral pleural effusions and the ascites are resolved in the interval since the last study. Multiple small hepatic and multiple bilateral renal cysts are again observed unchanged. The largest of these is in the inferior pole peripheral left renal cyst which measures 7.4 cm in greatest craniocaudal span. This is unchanged. There is a medially positioned descending duodenal diverticulum. No pancreatic lesion is seen. Gallbladder remains unremarkable. The previously noted omental caking is dramatically improved and virtually gone. Previously, this measured 3.7 cm in anterior-posterior thickness. At this level, today's study shows only 6 mm of residual omental soft tissue density in a linear fashion. There is a small cystic area in the left adnexa, which is also decreased in size. This measures 2.2 cm today, previously at this level by my measurement, this area measures 4.3 cm. Urinary bladder is intact. No abdominal wall defect is observed. No bony destructive lesion is appreciated. IMPRESSION: Dramatically improved abdominal and pelvic findings. The ascites has resolved. The cystic mass in the left adnexa is improved. The omental caking is almost resolved. Signed by Kevin Gauthier MD 11/02/2016 06:21 P
--- NOTE | 2016-11-02 15:11 | REP ---
CT study of the chest with IV contrast: History: Restaging ovarian carcinoma. Post chemo. Comparison chest CT study August 30, 2016. Prior CT study showed small to moderate bilateral pleural effusions and a mild upper abdominal ascites. CT contrast dose: 100 mL of intravenous Isovue 370. CT findings: The previously noted pleural effusions are resolved. The upper abdominal ascites is no longer visible. There is a small amount of pericardial fluid surrounding the ascending aorta and extending into the post aortic pericardial recess. This is new compared with the prior study. Other evidence of pericardial effusion is seen. This low density nodule anterior to the trachea and posterior and medial to the right superior vena cava on today's study, which is a little larger than previous. This may be a low density node. It measures 1.6 cm by 1.1 cm. No hilar adenopathy is appreciated. Lung parenchymal window settings demonstrate no pulmonary nodule or pulmonary mass lesion. The previously noted atelectasis in the lower lobes associated with the pleural effusions have also resolved. No bony destructive lesion is seen. In the upper abdomen, there are several stable small hepatic cysts again noted. Bilateral renal cysts are observed, also unchanged. The ascites has resolved. Exam is otherwise unremarkable. Impression: Fluid density material surrounding the ascending aorta consistent with some pericardial fluid on today's CT study. There is also a low density mediastinal lymph node in the pretracheal soft tissues at the level of the great vessels. 1.6 cm in diameter. Otherwise, improved with resolution of previously noted pleural effusions and ascites. Signed by Kevin Gauthier MD 11/02/2016 06:21 P
== END ==
LOC: M RAD 12:18
PROVIDERS: ATTEND Internal Medicine Medical Oncology
DX: C56.9 Malignant neoplasm of unspecified ovary (principal); Z79.899 Other long term (current) drug therapy
CPT/HCPCS: 71260; 74178; 81001; 87088; 87186; Q9963; Q9967

== ENCOUNTER → 2016-11-08 | Outpatient (CLI) | payer MEDICARE, BC, OTHER ==
[~2016-11-08] MED LIST changes: -GASTROGRAFIN SOLUTION 30ML (Q9963) As Ordered ONE; -ISOVUE-370 76% 100ML VIAL (Q9967) As Ordered ONE
[2016-11-08 12:09] LABS: INR 1.06
[2016-11-08 12:13] LABS: MEAN CORPUSCULAR HEMOGLOBIN 31.2 pg (27.0-33.0); MEAN CORPUSCULAR HGB CONC 32.6 g/dl (32.0-36.5); MEAN CORPUSCULAR VOLUME 95.5 fl (80.0-96.0); RED CELL DISTRIBUTION WIDTH 24.2 % (11.5-14.5); WHITE BLOOD COUNT 3.5 K/mm3 (4.0-10.0)
[2016-11-08 12:22] LABS: CALCIUM LEVEL 9.4 MG/DL (8.8-10.2); CREATININE FOR GFR 1.17 MG/DL (0.55-1.02); GLOMERULAR FILTRATION RATE 49.4 (>45); POTASSIUM SERUM 4.9 MEQ/L (3.5-5.1)
--- NOTE | 2016-11-08 20:34 | ECGEPIP ---
Stationary ECG Study [facility] Test Date: 2016-11-08 Pat Name: WALTER MCCLURE Department: Room: - Gender: F [employer] Teacher: JENNY : 1950 Requested By: Jovi Mason Order Number: [id number] Reading MD: Jan Jackson Measurements Intervals [place] Rate: 69 P: 66 OK: 114 QRS: 70 QRSD: 76 T: 54 QT: 378 QTc: 406 Interpretive Statements SINUS RHYTHM WITH SHORT OK INTERVAL Small inferior Q waves; rule out prior injury No change from 12/19/11 Electronically Signed On 11-08-2016 20:34:31 EDT by Jan Jackson
== END ==
LOC: M LAB 11:01
PROVIDERS: ATTEND Thoracic Surgery (Cardiothoracic Vascular Surgery)
DX: Z01.818 Encounter for other preprocedural examination (principal); C79.60 Secondary malignant neoplasm of unspecified ovary

== ENCOUNTER → 2016-11-08 | Day surgery (SDC) | payer MEDICARE, BC, OTHER ==
[~2016-11-08] MED LIST changes: +BUPIVACAINE LIPOSOME/PF 1.3% 20 ML VIAL (13.3MG/ML)(EXPAREL) As Ordered ONE; +HEPARIN SOD (PORCINE) 5000 UNITS/ML VIAL As Ordered ONE; +LIDOCAINE 1% SDV INJ 30 ML VIAL As Ordered ONE; +LIDOCAINE 2% INJ 100 MG/5 ML SDV (FOR ANES.) As Ordered ONE; +MIDAZOLAM INJ 2 MG/2 ML VIAL (J2250) As Ordered ONE; +MUPIROCIN 2% OINT 22 GM TUBE TOP ONE; +PROPOFOL 200 MG/20 ML VIAL As Ordered ONE; +fentaNYL 100 MCG/2 ML INJECTION (J3010) As Ordered ONE
[2016-11-08 15:55] VITALS: BP 131/59
--- NOTE | 2016-11-08 16:40 | REP ---
PORTABLE CHEST: AP portable view of the chest is performed. There is a left central venous catheter with the tip in the superior vena cava. There is no pneumothorax. No acute infiltrate is seen. Cardiomediastinal silhouette is unremarkable. IMPRESSION: Placement of left subclavian central venous catheter with the tip in the superior vena cava. No pneumothorax. Signed by Valdez Currie MD 11/08/2016 04:44 P
--- NOTE | 2016-11-08 21:08 | RO ---
DATE OF PROCEDURE: 11/08/2016 PREPROCEDURE DIAGNOSIS: Ovarian cancer, need for vascular access for chemotherapy. POSTPROCEDURE DIAGNOSIS: Ovarian cancer, need for vascular access for chemotherapy. PROCEDURE: Insertion of left subclavian [id number] with fluoroscopic control. SURGEON: Dr. Jovi Haas WINE SPECIALIST: ANESTHESIA: FINDINGS: All contours were smooth at the end of the procedure. The catheter was positioned at the junction of the superior vena cava and the right atrium. DESCRIPTION OF PROCEDURE: Under satisfactory MAC anesthesia, the patient was prepped and draped in the usual sterile fashion. Infraclavicular fossa was infiltrated with 1% Xylocaine and vein was found on the first pass. Wire was passed without difficulty. Wire position was confirmed by fluoroscopy. Port incision was then made approximately 2 cm below the infraclavicular fossa. Subcutaneous pocket was then created by both sharp and blunt dissection. The previously wired tract was then incised, dilated and a peel-away introducer was placed. The catheter was then placed with the low numbers down into the right atrium. Peel-away introducer was removed and a tunnel was created between the catheter site and the port site. Catheter was pulled through the tunnel and fluoroscopic control of the catheter was positioned at the junction of the superior vena cava (SVC) and the right atrium. The catheter was cut to an appropriate size, collar was placed and connected to the port. Port was aspirated and flushed without difficulty. The port was then secured to the chest wall with two #2-0 silk sutures. Final flush of heparin 100 units per mL was administered after again aspirating the port. The subcutaneous tissue was closed with a running #3-0 Vicryl suture, and the skin was closed with a running #4-0 Monocryl subcuticular suture. The patient tolerated the procedure well and left the operating room in satisfactory condition for the recovery room.
--- NOTE | 2016-11-09 07:22 | REP ---
PARTIAL CHEST X-RAY: TWO VIEWS. HISTORY: Metastatic ovarian carcinoma. FINDINGS: A sequence of two fluoroscopically-obtained last image hold spot radiographs of the chest document [id number] catheter position. Signed by Kevin Gauthier MD 11/09/2016 07:55 A
== END | disposition home or self-care (01) ==
LOC: M SDC 12:00
PROVIDERS: ATTEND Thoracic Surgery (Cardiothoracic Vascular Surgery)
DX: C79.60 Secondary malignant neoplasm of unspecified ovary (principal); C34.90 Malignant neoplasm of unspecified part of unspecified bronchus or lung; I10 Essential (primary) hypertension; E78.5 Hyperlipidemia, unspecified; E78.00 Pure hypercholesterolemia, unspecified; R94.31 Abnormal electrocardiogram [ECG] [EKG]; E54 Ascorbic acid deficiency; M12.9 Arthropathy, unspecified; M25.50 Pain in unspecified joint; Z88.1 Allergy status to other antibiotic agents; Z79.899 Other long term (current) drug therapy; Z01.818 Encounter for other preprocedural examination; Z90.710 Acquired absence of both cervix and uterus; Z98.51 Tubal ligation status
CPT/HCPCS: 36415; 36561; 71010; 76000; 80048; 85027; 85610; 85730; 93005; C1788; J0690; J2250; J3010

== ENCOUNTER → 2016-11-09 | Outpatient (REF) | payer MEDICARE, OTHER ==
[~2016-11-09] MED LIST changes: -BUPIVACAINE LIPOSOME/PF 1.3% 20 ML VIAL (13.3MG/ML)(EXPAREL) As Ordered ONE; -HEPARIN SOD (PORCINE) 5000 UNITS/ML VIAL As Ordered ONE; -LIDOCAINE 1% SDV INJ 30 ML VIAL As Ordered ONE; -LIDOCAINE 2% INJ 100 MG/5 ML SDV (FOR ANES.) As Ordered ONE; -MIDAZOLAM INJ 2 MG/2 ML VIAL (J2250) As Ordered ONE; -MUPIROCIN 2% OINT 22 GM TUBE TOP ONE; -PROPOFOL 200 MG/20 ML VIAL As Ordered ONE; -fentaNYL 100 MCG/2 ML INJECTION (J3010) As Ordered ONE
== END ==
LOC: M LAB REF 13:30
PROVIDERS: ATTEND Internal Medicine Medical Oncology
DX: C56.2 Malignant neoplasm of left ovary (principal)

== ENCOUNTER → 2016-11-11 | Outpatient (CLI) | payer MEDICARE, BC, OTHER ==
--- NOTE | 2016-11-11 09:23 | REP ---
PA and lateral chest: Comparison is the portable chest 11/08/2016. There is a right subclavian indwelling central venous catheter with the tip in the superior vena cava in satisfactory location, unchanged. There is no pneumothorax or pleural fluid collection. Lung javier are clear. Cardiac size is normal. The colin, mediastinum, and bony thorax are unremarkable. Impression: Indwelling left subclavian central venous catheter as described, unchanged in position. Signed by Valdez Blue MD 11/11/2016 09:16 A
== END ==
LOC: M SMT 08:53
PROVIDERS: ATTEND Thoracic Surgery (Cardiothoracic Vascular Surgery)
DX: Z45.2 Encounter for adjustment and management of vascular access device (principal)

== ENCOUNTER → 2016-12-12 | Outpatient (REF) | payer MEDICARE, OTHER | LOC: M LAB REF 13:26 | PROVIDERS: ATTEND Internal Medicine Medical Oncology | DX: C53.0 Malignant neoplasm of endocervix (principal) ==

== ENCOUNTER → 2016-12-19 | Outpatient (REF) | payer MEDICARE, OTHER | LOC: M LAB REF 12:37 | PROVIDERS: ATTEND Internal Medicine Medical Oncology | DX: C56.9 Malignant neoplasm of unspecified ovary (principal) ==

== ENCOUNTER → 2017-01-09 | Outpatient (REF) | payer MEDICARE, OTHER | LOC: M LAB REF 10:12 | PROVIDERS: ATTEND Internal Medicine Medical Oncology | DX: C56.9 Malignant neoplasm of unspecified ovary (principal) ==

== ENCOUNTER → 2017-01-30 | Outpatient (REF) | payer MEDICARE, OTHER | LOC: M LAB REF 12:17 | PROVIDERS: ATTEND Internal Medicine Medical Oncology | DX: C56.9 Malignant neoplasm of unspecified ovary (principal) ==

== ENCOUNTER → 2017-03-03 | Outpatient (REF) | payer MEDICARE, OTHER | LOC: M LAB REF 12:51 | PROVIDERS: ATTEND Internal Medicine Medical Oncology | DX: C56.9 Malignant neoplasm of unspecified ovary (principal) ==

== ENCOUNTER → 2017-04-13 | Outpatient (REF) | payer MEDICARE, OTHER | LOC: M LAB REF 13:08 | PROVIDERS: ATTEND Internal Medicine Medical Oncology | DX: C56.9 Malignant neoplasm of unspecified ovary (principal) ==

== ENCOUNTER → 2017-06-19 | Outpatient (REF) | payer MEDICARE, OTHER ==
[2017-06-20 11:21] LABS: CA 125 1133.6 U/ML (<30.2)
== END ==
LOC: M LAB REF 13:48
DX: C56.9 Malignant neoplasm of unspecified ovary (principal)
CPT/HCPCS: 86304

== ENCOUNTER → 2017-06-26 | Outpatient (CLI) | payer MEDICARE, BC, OTHER ==
[2017-06-27 11:55] LABS: CA 125 1535.1 U/ML (<30.2)
== END ==
LOC: M LAB 09:54
DX: C56.9 Malignant neoplasm of unspecified ovary (principal)

== ENCOUNTER → 2017-06-26 | Outpatient (CLI) | payer MEDICARE, BC, OTHER ==
[2017-06-26 11:03] LABS: ALKALINE PHOSPHATASE 60 U/L (45-117); ALT/SGPT 33 U/L (12-78); ANION GAP 6 MEQ/L (8-16); AST/SGOT 19 U/L (7-37); BILIRUBIN,TOTAL 0.4 MG/DL (0.2-1.0); BLOOD UREA NITROGEN 17 MG/DL (7-18); CALCIUM LEVEL 9.4 MG/DL (8.8-10.2); CARBON DIOXIDE LEVEL 30 MEQ/L (21-32); CHLORIDE LEVEL 107 MEQ/L (98-107); CHOLESTEROL LEVEL 161 MG/DL (<200); CHOLESTEROL RISK RATIO 3.096 (<5); CREATININE FOR GFR 1.03 MG/DL (0.55-1.30); GLOMERULAR FILTRATION RATE 57.1 (>45); GLUCOSE, FASTING 89 MG/DL (70-100); HDL CHOLESTEROL 52 MG/DL (>40); LDL CHOLESTEROL 83.2 MG/DL (<100); NON-HDL-C 109 MG/DL; SODIUM LEVEL 143 MEQ/L (136-145); TOTAL PROTEIN 7.8 GM/DL (6.4-8.2); TRIGLYCERIDES LEVEL 129 MG/DL (<150)
[2017-06-26 11:04] LABS: ALBUMIN 4.4 GM/DL (3.2-5.2); ALBUMIN/GLOBULIN RATIO 1.29 (1.00-1.93)
[2017-06-26 11:59] LABS: TOTAL 25(OH) VITAMIN D 56.6 NG/ML (30.0-100.0)
== END ==
LOC: M LAB 09:51
DX: I10 Essential (primary) hypertension (principal); E78.2 Mixed hyperlipidemia; E55.9 Vitamin D deficiency, unspecified; C56.9 Malignant neoplasm of unspecified ovary
CPT/HCPCS: 80053

== ENCOUNTER → 2017-06-28 | Outpatient (CLI) | payer MEDICARE, BC, OTHER ==
[~2017-06-28] MED LIST changes: -ATOR1TAB19 PO; -BACT800T5 PO; -CALC600T31 PO; -CALCCHW8 PO; -CARB50IN13 IV; +GASTROGRAFIN SOLUTION 30ML (Q9963) As Ordered; +ISOVUE-370 76% 100ML VIAL (Q9967) As Ordered; -LASI20TA PO; -LOSA50TA20 PO; -LOVE1INJ SC; -LOVE1INJ2 SC; -MULT1TAB18 PO; -TAXOL; -VITA200016 PO; -ZOFR4TAB3 PO
== END ==
LOC: M RAD 13:16
DX: N28.1 Cyst of kidney, acquired (principal); K76.89 Other specified diseases of liver; R93.5 Abnormal findings on diagnostic imaging of other abdominal regions, including retroperitoneum
CPT/HCPCS: Q9963

== ENCOUNTER → 2017-07-11 | Outpatient (CLI) | payer MEDICARE, BC, OTHER | LOC: M PLARAD 12:41 | DX: C56.9 Malignant neoplasm of unspecified ovary (principal); R59.0 Localized enlarged lymph nodes | CPT/HCPCS: 78815 ==

== ENCOUNTER → 2017-07-13 | Outpatient (CLI) | payer MEDICARE, BC | LOC: M WHC 08:05 | DX: Z12.31 Encounter for screening mammogram for malignant neoplasm of breast (principal) | CPT/HCPCS: 77067 ==

== ENCOUNTER → 2017-07-14 | Outpatient (REF) | payer MEDICARE, BC | LOC: M LAB REF 10:09 | DX: C56.9 Malignant neoplasm of unspecified ovary (principal) | CPT/HCPCS: 88305 ==

== ENCOUNTER → 2017-08-25 | Outpatient (REF) | payer MEDICARE, OTHER, BC ==
[2017-08-25 17:04] LABS: CA 125 1731.1 U/ML (<30.2)
== END ==
LOC: M LAB REF 13:40
DX: C56.2 Malignant neoplasm of left ovary (principal)
CPT/HCPCS: 86304

== ENCOUNTER → 2017-09-22 | Outpatient (REF) | payer MEDICARE, OTHER, BC ==
[2017-09-22 15:21] LABS: CA 125 525.4 U/ML (<30.2)
== END ==
LOC: M LAB REF 14:09
DX: C56.2 Malignant neoplasm of left ovary (principal)
CPT/HCPCS: 86304

== ENCOUNTER → 2017-10-24 | Outpatient (CLI) | payer MEDICARE, BC, OTHER | LOC: M RAD 16:13 | DX: C56.9 Malignant neoplasm of unspecified ovary (principal); N28.1 Cyst of kidney, acquired; K76.89 Other specified diseases of liver | CPT/HCPCS: Q9963 ==

== ENCOUNTER → 2017-11-16 | Outpatient (CLI) | payer MEDICARE, BC, OTHER | LOC: M CARPUL 13:04 | DX: Z51.81 Encounter for therapeutic drug level monitoring (principal); Z79.899 Other long term (current) drug therapy | CPT/HCPCS: 93306 ==

== ENCOUNTER → 2017-11-17 | Outpatient (REF) | payer MEDICARE, BC, OTHER ==
[2017-11-17 15:23] LABS: CA 125 2032.7 U/ML (<30.2)
== END ==
LOC: M LAB REF 13:12
DX: C56.2 Malignant neoplasm of left ovary (principal); D70.1 Agranulocytosis secondary to cancer chemotherapy; T45.1X5A Adverse effect of antineoplastic and immunosuppressive drugs, initial encounter
CPT/HCPCS: 86304

== ENCOUNTER → 2017-12-15 | Outpatient (REF) | payer MEDICARE, BC, OTHER | LOC: M LAB REF 12:54 | DX: C56.2 Malignant neoplasm of left ovary (principal); D70.1 Agranulocytosis secondary to cancer chemotherapy; T45.1X5A Adverse effect of antineoplastic and immunosuppressive drugs, initial encounter | CPT/HCPCS: 86304 ==

== ENCOUNTER → 2018-01-12 | Outpatient (CLI) | payer MEDICARE, BC, OTHER | LOC: M LAB 10:48 | DX: R18.8 Other ascites (principal); J90 Pleural effusion, not elsewhere classified; R59.0 Localized enlarged lymph nodes; N28.1 Cyst of kidney, acquired; C56.2 Malignant neoplasm of left ovary; D70.1 Agranulocytosis secondary to cancer chemotherapy; T45.1X5A Adverse effect of antineoplastic and immunosuppressive drugs, initial encounter; X58.XXXA Exposure to other specified factors, initial encounter; Y92.9 Unspecified place or not applicable; R10.9 Unspecified abdominal pain; Z90.711 Acquired absence of uterus with remaining cervical stump | CPT/HCPCS: Q9963 ==

== ENCOUNTER → 2018-01-12 | Outpatient (REF) | payer MEDICARE, OTHER ==
[2018-01-12 16:39] LABS: CA 125 1990.5 U/ML (<30.2)
== END ==
LOC: M LAB REF 13:38
DX: C56.2 Malignant neoplasm of left ovary (principal); D70.1 Agranulocytosis secondary to cancer chemotherapy; T45.1X5A Adverse effect of antineoplastic and immunosuppressive drugs, initial encounter; X58.XXXA Exposure to other specified factors, initial encounter; Y92.9 Unspecified place or not applicable

== ENCOUNTER → 2018-01-16 | Outpatient (REF) | payer MEDICARE, OTHER ==
[2018-01-16 13:25] LABS: INR 1.03; PROTHROMBIN TIME 13.6 SECONDS (12.1-14.4)
== END ==
LOC: M LAB REF 12:52
DX: C56.2 Malignant neoplasm of left ovary (principal); D70.1 Agranulocytosis secondary to cancer chemotherapy; T45.1X5A Adverse effect of antineoplastic and immunosuppressive drugs, initial encounter; R22.1 Localized swelling, mass and lump, neck; R14.0 Abdominal distension (gaseous)
CPT/HCPCS: 85610

== ENCOUNTER → 2018-01-22 | Outpatient (CLI) | payer MEDICARE, BC, OTHER ==
[~2018-01-22] MED LIST changes: -GASTROGRAFIN SOLUTION 30ML (Q9963) As Ordered; -ISOVUE-370 76% 100ML VIAL (Q9967) As Ordered; +LIDOCAINE 1% MDV 20ML VIAL As Ordered
== END ==
LOC: M RADPRO 10:23
DX: R59.0 Localized enlarged lymph nodes (principal); C56.2 Malignant neoplasm of left ovary; C77.9 Secondary and unspecified malignant neoplasm of lymph node, unspecified
CPT/HCPCS: 38505

== ENCOUNTER → 2018-02-13 | Outpatient (CLI) | payer MEDICARE, BC, OTHER ==
[~2018-02-13] MED LIST changes: +GASTROGRAFIN SOLUTION 30ML (Q9963) As Ordered; +ISOVUE-370 76% 100ML VIAL (Q9967) As Ordered; -LIDOCAINE 1% MDV 20ML VIAL As Ordered
== END ==
LOC: M RAD 12:39
DX: R10.9 Unspecified abdominal pain (principal); C56.9 Malignant neoplasm of unspecified ovary; R18.8 Other ascites; K76.89 Other specified diseases of liver; R59.0 Localized enlarged lymph nodes; N28.1 Cyst of kidney, acquired
CPT/HCPCS: Q9963

== ENCOUNTER → 2018-02-14 | Outpatient (REF) | payer MEDICARE, BC, OTHER | LOC: M LAB REF 13:14 | DX: Z85.43 Personal history of malignant neoplasm of ovary (principal) | CPT/HCPCS: 88300 ==

== ENCOUNTER → 2018-03-26 | Outpatient (CLI) | payer MEDICARE, BC, OTHER | LOC: M RAD 11:50 | DX: C56.9 Malignant neoplasm of unspecified ovary (principal); R59.9 Enlarged lymph nodes, unspecified; R18.8 Other ascites; R93.5 Abnormal findings on diagnostic imaging of other abdominal regions, including retroperitoneum; R91.8 Other nonspecific abnormal finding of lung field | CPT/HCPCS: Q9963 ==

== ENCOUNTER → 2018-04-03 | Outpatient (CLI) | payer MEDICARE, BC, OTHER | LOC: M RADPRO 13:16 | DX: R18.8 Other ascites (principal); C56.9 Malignant neoplasm of unspecified ovary; Z79.899 Other long term (current) drug therapy; Z88.0 Allergy status to penicillin | CPT/HCPCS: 49083 ==

== ENCOUNTER → 2018-04-12 | Outpatient (CLI) | payer MEDICARE, BC, OTHER ==
[~2018-04-12] MED LIST changes: +ATOR1TAB19 PO; +BACT800T5 PO; +CALC600T31 PO; +CALCCHW8 PO; +CARB50IN13 IV; -GASTROGRAFIN SOLUTION 30ML (Q9963) As Ordered; -ISOVUE-370 76% 100ML VIAL (Q9967) As Ordered; +LASI20TA3 PO; +LOSA50TA88 PO; +LOVE1INJ SC; +LOVE1INJ2 SC; +MULT1TAB18 PO; +OLAN10TA2 PO; +ONDA8TAB8 PO; +PROC10TA4 PO; +REGL10TA6 PO; +SENO8.6T5 PO; +TAXOL; +VITA200016 PO; +ZOFR4TAB14 PO
--- NOTE | 2018-04-12 16:32 | REP ---
Ultrasound-guided paracentesis The procedure was performed under the direct supervision of Dr. Gauthier. The risks and benefits of the procedure were explained to the patient and informed consent was obtained. The largest pocket of fluid was localized in the left flank using ultrasound guidance. The skin was prepped and draped in a sterile fashion. 1% lidocaine was used as a local anesthetic. Using ultrasound guidance an 8-Arabic multi side-hole catheter was inserted using trocar technique. 2200 ml of yellow fluid was withdrawn and discarded. The patient tolerated the procedure well and there were no immediate complications. After the appropriate amount of monitored convalescence the patient was discharged from the department. Reviewed by FROILAN Cesar 04/12/2018 04:11 P Electronically Signed by Kevin Gauthier MD 04/12/2018 04:24 P
== END ==
LOC: M RADPRO 13:13
PROVIDERS: ATTEND Nurse Practitioner Family
DX: R18.8 Other ascites (principal)

== ENCOUNTER 2018-04-20 00:36 | Emergency (ER) | payer MEDICARE, BC, OTHER ==
[~2018-04-20] VITALS: Ht 157.5 cm; Wt 59.1 kg
[~2018-04-20 00:36] MED LIST changes: -SENO8.6T5 PO
[2018-04-20] MEDS ORDERED: ONDANSETRON 4MG/2ML VIAL (J2405) IV ONE (01:15)
[2018-04-20] MEDS ORDERED: MORPHINE 4 MG/ML 1ML VIAL/SYRINGE (J2270) IV PRN (01:15)
[2018-04-20] MEDS ORDERED: ISOVUE-370 76% 100ML VIAL (Q9967) As Ordered ONE (01:56)
[2018-04-20 02:02] LABS: BASO % 0.1 % (0.0-1.0); EOS % 0.3 % (0.0-3.0); HEMATOCRIT 29.3 % (36.0-47.0); HEMOGLOBIN 9.2 g/dl (12.0-15.5); LYMPH # 0.4 10^3/uL (1.5-4.5); LYMPH % 4.5 % (24.0-44.0); MEAN CORPUSCULAR HEMOGLOBIN 29.1 pg (27.0-33.0); MEAN CORPUSCULAR HGB CONC 31.4 g/dl (32.0-36.5); MEAN CORPUSCULAR VOLUME 92.7 fl (80.0-96.0); MONO # 0.1 10^3/uL (0.0-0.8); MONO % 0.8 % (0.0-5.0); NEUTROPHILS # 8.2 10^3/uL (1.8-7.7); NEUTROPHILS % 93.5 % (36.0-66.0); PLATELET COUNT, AUTOMATED 244 10^3/uL (150-450); RED BLOOD COUNT 3.16 10^6/uL (4.00-5.40); WHITE BLOOD COUNT 8.8 10^3/uL (4.0-10.0)
[2018-04-20] MEDS: GASTROGRAFIN SOLUTION 30ML (Q9963) PO SCH ×2 (02:15→02:45)
[2018-04-20 02:28] LABS: ALBUMIN 2.2 GM/DL (3.2-5.2); ALT/SGPT 22 U/L (12-78); BILIRUBIN,DIRECT < 0.1 MG/DL (0.0-0.2); BILIRUBIN,TOTAL 0.2 MG/DL (0.2-1.0); BLOOD UREA NITROGEN 22 MG/DL (7-18); CALCIUM LEVEL 8.5 MG/DL (8.8-10.2); CARBON DIOXIDE LEVEL 26 MEQ/L (21-32); CHLORIDE LEVEL 101 MEQ/L (98-107); CK-MB VALUE MASS < 1.0 NG/ML (<3.6); CPK CREATINE PHOSPHOKINASE 23 U/L (26-192); CREATININE FOR GFR 1.13 MG/DL (0.55-1.30); GLOMERULAR FILTRATION RATE 51.1 (>45); GLUCOSE, FASTING 147 MG/DL (70-100); LIPASE 496 U/L (73-393); MB/CK RELATIVE INDEX 4.35 (< OR =4); POTASSIUM SERUM 3.5 MEQ/L (3.5-5.1); SODIUM LEVEL 137 MEQ/L (136-145); TROPONIN I < 0.02 NG/ML (< 0.10)
[2018-04-20] MEDS ORDERED: METOCLOPRAMIDE INJ 10MG/2ML VIAL (J2765) IV ONE (02:30)
--- NOTE | 2018-04-20 06:49 | REPVR ---
EXAM: CT Abdomen and Pelvis With Contrast EXAM DATE/TIME: 04/20/2018 1:47 AM CLINICAL HISTORY: 67 years old, female; Pain; Abdominal pain; Localized; Lower; Patient HX: HX ovarian CA; Additional info: Lower abdominal pain TECHNIQUE: Axial computed tomography images of the abdomen and pelvis with intravenous contrast. All CT scans at this facility use at least one of these dose optimization techniques: automated exposure control; mA and/or kV adjustment per patient size (includes targeted exams where dose is matched to clinical indication); or iterative reconstruction. Coronal and sagittal reformatted images were created and reviewed. CONTRAST: 100 ml of iso administered intravenously. COMPARISON: CT ABD PELVIS W/O FOL BY WIT 03/26/2018 2:04 PM FINDINGS: Lower thorax: There is a small right pleural effusion and moderate left pleural effusion which have increased in size. There is associated consolidation/compressive atelectasis, most pronounced within the left lower lobe. ABDOMEN: Liver: The liver is stable in appearance. There are multiple hepatic cysts, the largest measuring 1.8 cm. Gallbladder and bile ducts: No calcified gallstones. No ductal dilatation. Pancreas: Stable appearance of the pancreas. Mild prominence of the pancreatic duct. No peripancreatic inflammation. Spleen: The spleen is unremarkable in appearance. Adrenals: The adrenal glands are unremarkable. No mass. Kidneys and ureters: Symmetric bilateral nephrograms. Mild right hydronephrosis which has developed since the prior examination. The kidneys are otherwise stable in appearance with multiple bilateral renal cysts, left greater than right. The largest cyst arises exophytically from the lower pole of the left kidney and measures 6.8 cm. No evidence of hydronephrosis on the left. Stomach and bowel: The stomach is relatively decompressed. No evidence of bowel obstruction. There is diffuse colonic thickening which has increased. PELVIS: Bladder: The urinary bladder is essentially decompressed. Reproductive: Status post hysterectomy. ABDOMEN and PELVIS: Intraperitoneal space: Large amount of ascites, similar in volume to that noted on the prior examination. No free air. Bones/joints: The appearance of the bones is stable. No acute fracture. Soft tissues: Subcutaneous soft tissue edema. Vasculature: Atherosclerosis. No abdominal aortic aneurysm. Lymph nodes: Stable retroperitoneal, iliac chain and mesenteric adenopathy. IMPRESSION: 1. Bilateral pleural effusions, small on the right and moderate on the left which have increased in size. There is associated consolidation/compressive atelectasis, most pronounced within the left lower lobe. 2. Large amount of ascites which appears similar in volume to that noted on the prior examination. No free air. 3. Stable adenopathy/peritoneal implants. 4. Mild right hydronephrosis which has developed compared to the prior examination. 5. Diffuse colonic thickening which has increased. Differential considerations include bowel edema and/or serosal metastatic implants. Superimposed nonspecific colitis cannot be excluded and this will need to be correlated clinically. There is no evidence of bowel obstruction. 6. Additional non-emergent findings, as discussed above. Electronically signed by: Jose Alarcon On 04/20/2018 06:48:48 AM
[2018-04-20 07:11] VITALS: BP 139/70
--- NOTE | 2018-04-20 07:49 | REP ---
PORTABLE CHEST X-RAY: Single view. HISTORY: Confirmation of power port. COMPARISON STUDY: November 11, 2016. FINDINGS: There is an Otgicw-O-Ztez in place via the left side with its tip in the expected location of the superior vena cava unchanged from the prior study. There is blunting of the left lateral pleural angle indicative of small left pleural effusion. There are a few air bronchograms in the left lower lobe. Right lung is clear. IMPRESSION: Power port injectable central venous catheter in place. Left pleural effusion. Atelectasis left lower lobe. Electronically Signed by Kevin Gauthier MD 04/20/2018 08:20 A
--- NOTE | 2018-04-21 08:17 | ED PDOC ---
Post-Departure Follow-Up radiology report faxed to Tejal Scales MD Apr 21, 2018 08:17
[2018-04-30] MEDS ORDERED: SENO8.6T5 PO (14:28)
== END 2018-04-20 07:24 | disposition home or self-care (01) ==
LOC: M ED 00:36
DX: C56.9 Malignant neoplasm of unspecified ovary (principal); J90 Pleural effusion, not elsewhere classified; J98.11 Atelectasis; Z79.899 Other long term (current) drug therapy; Z88.0 Allergy status to penicillin
CPT/HCPCS: 36415; 71045; 74177; 80048; 80076; 82550; 82553; 83605; 83690; 84484; 85025; 93041; 96374; 96375; 99285; J2405; J2765; Q9963; Q9967

== ENCOUNTER → 2018-04-30 | Outpatient (CLI) | payer MEDICARE, BC, OTHER ==
[~2018-04-30] MED LIST changes: +SENO8.6T5 PO
--- NOTE | 2018-04-30 18:33 | REP ---
Urinary tract sonography: History: Hydroureter. Rule out ureteral obstruction. Metastatic ovarian carcinoma. Comparison CT study April 20, 2018. Sonographic findings: Scanning at the level of the urinary bladder demonstrates that it is largely empty, calculated volume 54 ml. Emptying ureteral jets could not be reliably identified on Doppler interrogation of the bladder lumen due to artifact from bowel peristalsis. Renal cortical echogenicity pattern is normal bilaterally. There is mild to moderate hydronephrosis seen affecting the right renal pelvis and intrarenal collecting system. The proximal ureter is not dilated on the right. No hydronephrosis or ureteral dilation is noted on the left. There is a lower pole cyst in the right kidney 1.6 cm in diameter. Multiple cysts are seen affecting the left kidney as noted on CT. The largest of these measures 7.1 x 5.2 x 5.4 cm. This is at the lower pole of the left kidney. Left renal dimensions are 11.7 x 4.7 x 5.1 cm. Right kidney measures 9.5 x 5.8 x 4.2 cm. There is mild ascites. Impression: There is mild to moderate hydronephrosis affecting the right kidney and right renal pelvis. The right ureter is not visibly dilated however. No hydronephrosis is noted on the left. Bilateral renal cysts are observed. There is mild ascites visible. Electronically Signed by Kevin Gauthier MD 04/30/2018 07:49 P
== END ==
LOC: M RAD 16:23
PROVIDERS: ATTEND Internal Medicine Medical Oncology
DX: C56.2 Malignant neoplasm of left ovary (principal); C77.9 Secondary and unspecified malignant neoplasm of lymph node, unspecified; R18.8 Other ascites; N13.30 Unspecified hydronephrosis

== ENCOUNTER 2018-05-09 09:12 | Outpatient (CLI) | payer MEDICARE, BC, OTHER ==
[2018-05-09] VITALS (11 sets, daily range): BP systolic 121–155; BP diastolic 61–71
[~2018-05-09] VITALS: Ht 157.5 cm; Wt 58.1 kg
[~2018-05-09 09:12] MED LIST changes: +ACETAMINOPHEN TAB 650MG DOSE (2X325MG) PO SCH; +SODIUM CHLORIDE 0.9% INJ 10 ML SYR IV SCH; +diphenhydrAMINE 25 MG CAP PO SCH
[2018-05-09] MEDS ORDERED: NS 500 ML IV ONE (16:00)
== END 2018-05-09 17:35 | disposition home or self-care (01) ==
LOC: M INFU 09:12
PROVIDERS: ATTEND Nurse Practitioner Family
DX: D64.9 Anemia, unspecified (principal); C56.9 Malignant neoplasm of unspecified ovary; Z88.0 Allergy status to penicillin
CPT/HCPCS: 36430; 86850; 86900; 86901; 86920; P9016

== ENCOUNTER → 2018-05-11 | Outpatient (CLI) | payer MEDICARE, BC, OTHER ==
[~2018-05-11] MED LIST changes: -ACETAMINOPHEN TAB 650MG DOSE (2X325MG) PO SCH; +CALC-190 PO; -SODIUM CHLORIDE 0.9% INJ 10 ML SYR IV SCH; -diphenhydrAMINE 25 MG CAP PO SCH
== END ==
LOC: M RADPRO 12:23
PROVIDERS: ATTEND Internal Medicine Medical Oncology
DX: R18.8 Other ascites (principal); C56.9 Malignant neoplasm of unspecified ovary

== ENCOUNTER 2018-05-15 13:25 | Inpatient (IN) | payer MEDICARE, BC, OTHER ==
[~2018-05-15] VITALS: Ht 157.5 cm; Wt 55.9 kg
[~2018-05-15 13:25] MED LIST changes: -CALC-190 PO
[2018-05-15] MEDS ORDERED: ONDANSETRON 4MG/2ML VIAL (J2405) IV ONE (15:00)
[2018-05-15] MEDS ORDERED: fentaNYL 100 MCG/2 ML INJECTION (J3010) IV ONE ×2 (15:00→17:30)
[2018-05-15] MEDS ORDERED: NS 500 ML IV ONE (15:00)
[2018-05-15] MEDS ORDERED: SODIUM CHLORIDE 0.9% INJ 10 ML SYR IV PRN (15:00)
[2018-05-15 15:25] LABS: LIPASE 129 U/L (73-393)
[2018-05-15 15:43] LABS: AMYLASE 65 U/L (25-115); C REACTIVE PROTEIN QUANTITATIV 7.25 MG/DL (0.00-0.30); CK-MB VALUE MASS < 1.0 NG/ML (<3.6); CPK CREATINE PHOSPHOKINASE 33 U/L (26-192); MB/CK RELATIVE INDEX 3.03 (< OR =4); TROPONIN I < 0.02 NG/ML (< 0.10)
[2018-05-15 15:46] LABS: INR 1.1; PROTHROMBIN TIME 14.3 SECONDS (12.1-14.4)
[2018-05-15 15:47] LABS: PARTIAL THROMBOPLASTIN TIME 41.7 SECONDS (25.4-37.6)
--- NOTE | 2018-05-15 16:30 | REP ---
RIGHT UPPER QUADRANT SONOGRAPHY: History: Right upper quadrant pain. Shortness of breath. Findings: Scanning through right upper quadrant of the abdomen demonstrates a somewhat thick-walled mildly distended gallbladder. No stone or polyp is seen. The gallbladder wall measures up to 9 mm in thickness. There is septated ascites visible in the right flank. Common bile duct is at the upper range of normal measuring 0.7 cm in greatest diameter. No focal liver lesion is seen. Limited views of the pancreas show no abnormality. A right pleural effusion is noted incidentally. Mild hydronephrosis is seen affecting the right kidney. Right renal dimensions are 9.2 x 3.8 x 3.8 cm. There is a cyst in the right mid kidney measuring 1.5 cm in greatest diameter. Impression: Mildly dilated thick-walled gallbladder without visible stone or polyp. Septated right flank ascites. Small right pleural effusion. CBD at the upper range of normal in size. Very mild right-sided hydronephrosis. Electronically Signed by Kevin Gauthier MD 05/15/2018 05:39 P
[2018-05-15] MEDS ORDERED: metroNIDAZOLE 500 MG in APPROPRIATE DILUENT 1 EA IV ONE (17:15)
[2018-05-15] MEDS ORDERED: CIPROFLOXACIN 400 MG in APPROPRIATE DILUENT 1 EA IV ONE (17:15)
[2018-05-15] MEDS ORDERED: OLAN10TA2 PO (17:24)
[2018-05-15] MEDS ORDERED: ONDA8TAB8 PO (17:24)
[2018-05-15] MEDS ORDERED: PROC10TA4 PO (17:24)
[2018-05-15] MEDS ORDERED: CALC-190 PO (17:24)
[2018-05-15] MEDS ORDERED: NS 1,000 ML IV SCH ×3 (17:30→18:15)
--- NOTE | 2018-05-15 17:49 | REP ---
CT abdomen and pelvis without IV or oral contrast: History: Rule out perforated viscus. The patient has a history of ovarian carcinoma. Comparison study: April 20, 2018. Findings: There are small bilateral pleural effusions, left greater than right. A small pericardial effusion is seen. This is a new finding. Multiple renal cysts are again noted. There is a moderate amount of abdominal ascites across the anterior abdomen with some loculation. There is evidence of visceral and parietal peritoneal thickening suggesting tumor implantation. This parietal peritoneal thickening is more pronounced than it was April 20, 2018. The amount of fluid has increased in the anterior abdomen. There is a new finding also of some uncontained intraperitoneal air in the left mid abdomen. This is seen along the greater curvature of the stomach. There is a small bubble of free intraperitoneal air at the inferior tip of the left lobe of the liver as well. There is free air anterior to the left lobe of the liver more superiorly. There is also a fluid collection in the cul-de-sac again noted essentially unchanged. Impression: There is a small quantity of free intraperitoneal air. There is increased ascites and increased parietal peritoneal thickening. An air collection is seen along the greater curvature of the stomach suggesting the possibility of perforation site. Small pleural effusions and a small pericardial effusion are also noted. Findings were telephoned to the ED provider at the time of this dictation. Electronically Signed by Kevin Gauthier MD 05/15/2018 06:41 P
[2018-05-15] MEDS ORDERED: ONDANSETRON 4MG/2ML VIAL (J2405) IV PRN (18:15)
[2018-05-15] MEDS ORDERED: LIDOCAINE 2% INJ 100 MG/5 ML SDV (FOR ANES.) As Ordered ONE ×2 (18:17→18:20)
[2018-05-15] MEDS ORDERED: ROCURONIUM BROMIDE 50 MG/5 ML VIAL As Ordered ONE ×2 (18:17→21:21)
[2018-05-15] MEDS ORDERED: PROPOFOL 200 MG/20 ML VIAL As Ordered ONE (18:17)
[2018-05-15] MEDS ORDERED: fentaNYL 100 MCG/2 ML INJECTION (J3010) As Ordered ONE ×2 (18:17→18:19)
[2018-05-15] MEDS ORDERED: MIDAZOLAM INJ 2 MG/2 ML VIAL (J2250) As Ordered ONE (18:18)
[2018-05-15] MEDS ORDERED: BUPIVACAINE HCL 0.25% 30 ML VIAL As Ordered ONE (18:37)
[2018-05-15] MEDS ORDERED: PHENYLEPHRINE INJ 10MG/ML VIAL (J2370) As Ordered ONE ×2 (18:42→22:58)
[2018-05-15] MEDS ORDERED: VASOPRESSIN INJ 20 UNITS/ML VIAL As Ordered ONE (18:46)
[2018-05-15] MEDS ORDERED: SUCCINYLCHOLINE 100 MG/5 ML SYRINGE (J0330) As Ordered ONE (18:52)
[2018-05-15] MEDS ORDERED: HYDROmorphone HCL 2 MG/ML 1ML VIAL (J1170) As Ordered ONE (19:56)
[2018-05-15] MEDS ORDERED: METOCLOPRAMIDE INJ 10MG/2ML VIAL (J2765) As Ordered ONE (20:04)
[2018-05-15] MEDS ORDERED: ERTAPENEM 1 GM INJ (INVanz) (J1335) As Ordered ONE (20:44)
[2018-05-15] MEDS ORDERED: NEOSTIGMINE 10 MG/10 ML VIAL (J2710) As Ordered ONE (21:13)
[2018-05-15] MEDS ORDERED: GLYCOPYRROLATE INJ 0.2 MG/ML 2 ML VIAL As Ordered ONE (21:13)
[2018-05-15] MEDS ORDERED: ONDANSETRON 4MG/2ML VIAL (J2405) As Ordered ONE (21:13)
[2018-05-15 22:58] LABS: HEMATOCRIT 32.2 % (36.0-47.0); HEMOGLOBIN 10.4 g/dl (12.0-15.5); MEAN CORPUSCULAR HEMOGLOBIN 28.8 pg (27.0-33.0); MEAN CORPUSCULAR HGB CONC 32.3 g/dl (32.0-36.5); MEAN CORPUSCULAR VOLUME 89.2 fl (80.0-96.0); PLATELET COUNT, AUTOMATED 128 10^3/uL (150-450); RED BLOOD COUNT 3.61 10^6/uL (4.00-5.40); WHITE BLOOD COUNT 17.5 10^3/uL (4.0-10.0)
[2018-05-15 23:17] LABS: MONOCYTES 3 % (0-8); NEUTROPHILS 97 % (35-75)
[2018-05-15 23:18] LABS: ANISOCYTOSIS 1+; PLATELET ESTIMATE DECREASED (NORMAL); TOXIC VACUOLATION 1+
[2018-05-15 23:29] LABS: ALBUMIN 1.7 GM/DL (3.2-5.2); CALCIUM LEVEL 6.8 MG/DL (8.8-10.2); CREATININE FOR GFR 1.43 MG/DL (0.55-1.30); POTASSIUM SERUM 4.6 MEQ/L (3.5-5.1)
[2018-05-16] VITALS (32 sets, daily range): BP systolic 79–126; BP diastolic 43–61
[2018-05-16] MEDS ORDERED: metroNIDAZOLE 500 MG in APPROPRIATE DILUENT 1 EA IV SCH ×2
[2018-05-16] MEDS: HYDROMORPHONE HCL 0.5 MG/ 0.5 ML SYRINGE (J1170 PER 1) IV PRN ×6 (00:40→16:17)
[2018-05-16] MEDS: NS 1,000 ML IV SCH ×5 (01:39→21:29)
[2018-05-16] MEDS ORDERED: diphenhydrAMINE INJ 50MG/ML VIAL (J1200) IV PRN (01:41)
[2018-05-16] MEDS: NOREPINEPHRINE BITARTRATE 8 MG in D5W 492 ML IV SCH ×2 (02:00→15:20)
[2018-05-16] MEDS ORDERED: CIPROFLOXACIN 400 MG in APPROPRIATE DILUENT 1 EA IV SCH (05:00)
--- NOTE | 2018-05-16 07:24 | REP ---
Chest one-view HISTORY: Fever Comparison: 04/26/2018 Patchy density is present in the left lower lobe consistent with atelectasis or infiltrate. A small left pleural effusion is present that is slightly decreased compared to the previous study. The right lung is clear. The heart is normal in size. The pulmonary vasculature is normal in appearance. An Hodpmu-U-Ezzo catheter is present. Impression: 1. Left lower lobe atelectasis or infiltrate. 2. Small left pleural effusion slightly decreased compared to the previous study. Electronically Signed by Papito Brito MD 05/15/2018 03:41 P
[2018-05-16] MEDS: PANTOPRAZOLE 40MG INJ (PROTONIX) (C9113) IV SCH (08:54)
[2018-05-16] MEDS: ENOXAPARIN 40 MG/0.4 ML SYRINGE (J1650) SC SCH (08:54)
--- NOTE | 2018-05-16 09:07 | REP ---
PARTIAL ABDOMEN SERIES: Four views. HISTORY: Intraprocedural spot films. 2 seconds of fluoroscopy time is reported. FINDINGS: A sequence of four last image hold fluoroscopic spot radiographs of the abdomen document catheter position. Electronically Signed by Kevin Gauthier MD 05/16/2018 09:38 A
[2018-05-16 13:22] LABS: HEMATOCRIT 29.3 % (36.0-47.0); HEMOGLOBIN 9.3 g/dl (12.0-15.5); MEAN CORPUSCULAR HEMOGLOBIN 28.7 pg (27.0-33.0); MEAN CORPUSCULAR HGB CONC 31.7 g/dl (32.0-36.5); MEAN CORPUSCULAR VOLUME 90.4 fl (80.0-96.0); PLATELET COUNT, AUTOMATED 121 10^3/uL (150-450); RED BLOOD COUNT 3.24 10^6/uL (4.00-5.40); WHITE BLOOD COUNT 18.4 10^3/uL (4.0-10.0)
[2018-05-16 13:49] LABS: ALBUMIN 1.6 GM/DL (3.2-5.2); BILIRUBIN,TOTAL 0.5 MG/DL (0.2-1.0); CALCIUM LEVEL 6.8 MG/DL (8.8-10.2); CREATININE FOR GFR 1.54 MG/DL (0.55-1.30); GLOMERULAR FILTRATION RATE 35.8 (>45); POTASSIUM SERUM 4.3 MEQ/L (3.5-5.1); TOTAL PROTEIN 4.6 GM/DL (6.4-8.2)
[2018-05-16 13:56] LABS: LYMPHOCYTES 1 % (16-52); MONOCYTES 7 % (0-8); NEUTROPHILS 84 % (35-75); PLATELET ESTIMATE DECREASED (NORMAL)
[2018-05-16 13:57] LABS: TOXIC GRANULATION 1+
[2018-05-16] MEDS ORDERED: SODIUM CHLORIDE 0.9% INJ 10 ML SYR IV PRN (17:00)
--- NOTE | 2018-05-16 17:39 | ECGEPIP ---
Stationary ECG Study [facility] - ED Test Date: 2018-05-15 Pat Name: WALTER MCCLURE Department: Room: - Gender: F Translator: TC : 1950 Requested By: NALLELY Mason Order Number: [id number] Reading MD: Tejal Riley Measurements Intervals [place] Rate: 147 P: 65 DC: 97 QRS: 58 QRSD: 60 T: 49 QT: 258 QTc: 403 Interpretive Statements SINUS TACHYCARDIA WITH SHORT DC INTERVAL, POSSIBLE ATRIAL FLUTTER ABNORMAL RHYTHM ECG Electronically Signed On 05-16-2018 17:38:54 EST by Tejal Riley
[2018-05-16] MEDS: ERTAPENEM SODIUM 1 GM in NS MINI-BAG PLUS 50 ML IV SCH (18:10)
[2018-05-16] MEDS ORDERED: fentaNYL 100 MCG/2 ML INJECTION (J3010) IV PRN (21:15)
[2018-05-16] MEDS ORDERED: ANEXSIA, NORCO 7.5MG/325MG TABLET(HYDROCODONE/APAP) PO PRN (21:15)
[2018-05-17] VITALS (23 sets, daily range): BP systolic 94–138; BP diastolic 49–60
[2018-05-17] MEDS: KETOROLAC 30 MG/ML VIAL (J1885) IV PRN ×3 (00:23→21:47)
[2018-05-17 06:50] LABS: BASO % 0.1 % (0.0-1.0); HEMATOCRIT 24.6 % (36.0-47.0); HEMOGLOBIN 7.8 g/dl (12.0-15.5); LYMPH # 0.3 10^3/uL (1.5-4.5); MEAN CORPUSCULAR HEMOGLOBIN 28.7 pg (27.0-33.0); MEAN CORPUSCULAR HGB CONC 31.7 g/dl (32.0-36.5); MEAN CORPUSCULAR VOLUME 90.4 fl (80.0-96.0); MONO # 1.2 10^3/uL (0.0-0.8); MONO % 7.3 % (0.0-5.0); NEUTROPHILS # 14.2 10^3/uL (1.8-7.7); NEUTROPHILS % 89.7 % (36.0-66.0); PLATELET COUNT, AUTOMATED 110 10^3/uL (150-450); RED BLOOD COUNT 2.72 10^6/uL (4.00-5.40); WHITE BLOOD COUNT 15.8 10^3/uL (4.0-10.0)
[2018-05-17 07:12] LABS: CALCIUM LEVEL 6.6 MG/DL (8.8-10.2); CREATININE FOR GFR 1.42 MG/DL (0.55-1.30); GLOMERULAR FILTRATION RATE 39.3 (>45); POTASSIUM SERUM 3.9 MEQ/L (3.5-5.1)
--- NOTE | 2018-05-17 07:23 | RO ---
DATE OF PROCEDURE: 05/15/2018 PREOPERATIVE DIAGNOSES: Stage IV ovarian carcinoma with carcinomatosis and new onset perforated viscus. POSTOPERATIVE DIAGNOSES: 1. Ovarian carcinomatosis with extensive bowel involvement. 2. Small bowel perforation seemingly in the proximal jejunum. PROCEDURE PERFORMED: Laparoscopy, laparotomy with debridement of peritonitis, insertion of Clayton gastrojejunal tube, creation of gastrojejunal fistula with placement of gastrojejunal tube. Lysis of adhesions was also performed. SURGEON: Dr. Jovi Jones. ANESTHESIA: General. INDICATIONS FOR PROCEDURE: The patient is a very pleasant 67-year-old woman who was diagnosed with stage IV ovarian carcinoma approximately a year and a half ago. She underwent chemotherapy with subsequent debulking of tumor and has been continued on various forms of chemotherapy. She recently started a fourth line approach to therapy with cisplatin and gemcitabine. She has chronic ascites and has been having periodic paracenteses performed. On the twenty-first shortly after lunch, actually during lunch, she noted the sudden onset of severe epigastric abdominal pain which then spread into the entire upper abdomen and then more broadly. She came to the emergency department where she was found to be markedly tachycardiac with severe pain in the epigastrium. A CT scan revealed a few bubbles of free air consistent with a perforated viscus and she is now for laparoscopy and possible laparotomy. She was counseled that because of her extensive carcinomatosis that surgery might be very difficult and control of perforation could also be difficult requiring bowel resection or even ostomy. She desired to proceed. OPERATIVE PROCEDURE: The patient was brought to the operating room and placed on the table in a supine position. She was placed under general endotracheal anesthesia. A radial arterial line was placed on the left by anesthesia for monitoring. Thromboembolic deterrent stockings (TEDS) and sequentials were utilized. A Luna catheter was inserted. An orogastric tube was also placed. The patient's abdomen was then prepped and draped in a sterile fashion. 0.25% Marcaine was used at the trocar sites. A short infraumbilical midline incision was made and a small Veress needle was inserted. After positive hanging drop test, the abdomen was insufflated with carbon dioxide gas. A 5 mm port was placed over 5 mm scope and this was advanced through the abdominal wall without difficulty. The scope was inserted. The patient was found to have a large amount of free intra-abdominal fluid. There were filmy bands of exudate crossing between the intestinal contents in the anterior abdominal wall. These were broken apart with the scope. A second 5 mm port was placed in the right midabdomen. The suction coal yard supervisor was used to remove approximately a liter to a liter and a half of turbid greenish-yellow fluid from the upper abdomen. Some exudate coating the liver and portions of bowel and stomach was aspirated as well. I was able to break apart some fresh adhesions between the liver and the gallbladder and the stomach but a perforated ulcer was not identified. Point of maximum contamination appeared to lie just at the inferior edge of the stomach where it met a piece of what appeared to be small bowel. The anatomy was grossly distorted by extensive adhesions between the bowel. I elected to proceed with laparotomy to allow better exploration in search of the perforation. Therefore an upper midline incision was made approximately 15-18 cm in length. A handheld retractor was used initially to allow exploration. Large amount of exudate was cleared off of the surfaces of the liver and more turbid fluid was irrigated from around the right lobe of the liver. The stomach wall appeared somewhat thickened. There were areas of the bowel that appeared quite thickened, presumably from cancer infiltration as well. There was significant adhesion between loops of small bowel which appeared too established to represent acute adhesions from the peritonitis and seemed more likely to represent tumor. The abdomen was widely irrigated and loose adhesions were broken apart by finger dissection. Several liters of warm saline were used to irrigate the abdomen. The stomach appeared somewhat thickened but not perforated. There was a small area of maximum contamination in a shallow fold between the greater curve of the stomach and a loop of small bowel. This appeared to represent proximal jejunum, but the bowel was all quite matted together. The descending colon was visible laterally but was flattened and matted against the retroperitoneum presumably by tumor. There appeared to be a portion of the colon coursing across beneath the stomach but behind the small loop of bowel that appeared to have a perforation through the superior aspect of this. The perforation was small but it was possible to insert gently a fine tipped clamp through confirming this as a perforation. It was impossible to see the area fully because there were dense attachments between the stomach and the loop of small bowel just posterior to the perforation. I did not want to injure the bowel out of concern that a colon injury or small bowel injury would not be easily repaired and resection would entail possibly extensive dissection of tumor involved bowel. There were multiple small nodules identified on the mesentery of the small bowel forming dense adhesions. I elected to place a Clayton gastrostomy tube. This was placed through a stab wound in the left upper quadrant and directed into the stomach through a small gastrotomy. This was advanced by palpation through the pylorus and around the duodenal loop. Initial attempt at passage as assessed by fluoroscopy showed that the tube had doubled back into the stomach but on the second attempt, the passage around the C-loop of the duodenum was confirmed fluoroscopically. The balloon was inflated within the stomach. To try to control the small bowel perforation, I elected to place a tube into the stomach and then out the greater curve of the stomach adjacent to the small bowel perforation and then into the small bowel through the perforation to try to create effectively a controlled fistula. This was accomplished by placement of a 18-Jamaican Lnua catheter through a stab wound in the right upper quadrant just to the right of the midline incision and then into the stomach through a small gastrotomy and out the greater curve of the stomach and into the small bowel perforation. Several sutures of #2-0 Vicryl were placed around the perforation to suture the wall of the stomach to the wall of the small bowel. Several additional #3-0 silk sutures were placed. The balloon of the Luna catheter was inflated with approximately 6-7 mL of water. A #1-0 Vicryl pursestring suture was placed around each of the gastrotomies were the tubes were inserted. Where the Clayton tube entered, the anterior wall of the stomach was sutured to the anterior abdominal wall with two simple sutures of #1-0 Vicryl. A 19-Jamaican Mateusz drain was inserted through the right midabdominal trocar site and directed across the area of the now controlled perforation adjacent to the greater curve of the stomach. The abdomen was irrigated a final time with some saline irrigation and the abdomen was inspected for hemostasis which was excellent. I would note that fluid from the abdomen had been obtained on aerobic and anaerobic culturettes. The peritoneum along the abdominal incision was closed with running suture of #1-0 Vicryl. The fascia was then closed with interrupted simple sutures of #1 Vicryl. The skin incision was closed with skin myron. The Mateusz drain in the right midabdomen was sutured to the skin with a #2-0 silk and connected to a Bijan-Potts bulb. A chlorhexidine gluconate OpSite was placed over this drain site. The Luna catheter going through the stomach and into the small bowel was sutured to the skin with #2-0 silk and then plugged with a catheter plug. The Clayton tube in the left upper quadrant was fixed to the skin by placing a suture through the external pledget and tying this about the catheter. The wounds were dressed. The patient tolerated the procedure surprisingly well. Her nasogastric tube was removed. Luna catheter was continued. She was awakened in the operating room, extubated and moved to the recovery room in stable condition. SINCERE
[2018-05-17] MEDS: PANTOPRAZOLE 40MG INJ (PROTONIX) (C9113) IV SCH (08:41)
[2018-05-17] MEDS: ENOXAPARIN 40 MG/0.4 ML SYRINGE (J1650) SC SCH (08:42)
[2018-05-17] MEDS: SODIUM CHLORIDE 0.9% INJ 10 ML SYR IV SCH (08:42)
[2018-05-17] MEDS ORDERED: fentaNYL 100 MCG/2 ML INJECTION (J3010) IV PRN (17:00)
[2018-05-17] MEDS ORDERED: AMINO AC/ELECTROLYTE/DEX/CALC 2,000 ML IV SCH (18:00)
[2018-05-17] MEDS ORDERED: FAT EMULSION IV 20% 500 ML IV SCH (18:00)
[2018-05-17] MEDS: HumaLOG INSULIN (NovoLOG) PER UNIT SC SCH (18:00)
[2018-05-17] MEDS: ERTAPENEM SODIUM 1 GM in NS MINI-BAG PLUS 50 ML IV SCH (18:34)
[2018-05-18] VITALS (11 sets, daily range): BP systolic 109–147; BP diastolic 53–72
[2018-05-18] MEDS: HumaLOG INSULIN (NovoLOG) PER UNIT SC SCH ×4 (00:25→18:03)
[2018-05-18] MEDS: SODIUM CHLORIDE 0.9% INJ 10 ML SYR IV SCH (07:33)
[2018-05-18 08:07] LABS: HEMATOCRIT 23.4 % (36.0-47.0); HEMOGLOBIN 7.5 g/dl (12.0-15.5); MEAN CORPUSCULAR HEMOGLOBIN 29.1 pg (27.0-33.0); MEAN CORPUSCULAR HGB CONC 32.1 g/dl (32.0-36.5); MEAN CORPUSCULAR VOLUME 90.7 fl (80.0-96.0); PLATELET COUNT, AUTOMATED 108 10^3/uL (150-450); RED BLOOD COUNT 2.58 10^6/uL (4.00-5.40); WHITE BLOOD COUNT 14.1 10^3/uL (4.0-10.0)
[2018-05-18 08:18] LABS: CALCIUM LEVEL 7.2 MG/DL (8.8-10.2); CREATININE FOR GFR 1.33 MG/DL (0.55-1.30); GLOMERULAR FILTRATION RATE 42.4 (>45); POTASSIUM SERUM 3.7 MEQ/L (3.5-5.1)
[2018-05-18] MEDS: ENOXAPARIN 40 MG/0.4 ML SYRINGE (J1650) SC SCH (08:33)
[2018-05-18] MEDS: PANTOPRAZOLE 40MG INJ (PROTONIX) (C9113) IV SCH (08:34)
[2018-05-18 08:45] LABS: LYMPHOCYTES 1 % (16-52); NEUTROPHILS 99 % (35-75)
[2018-05-18 08:46] LABS: PLATELET ESTIMATE NORMAL (NORMAL)
[2018-05-18] MEDS: KETOROLAC 30 MG/ML VIAL (J1885) IV PRN ×2 (09:54→18:02)
[2018-05-18] MEDS ORDERED: MULTIVITAMIN -ADULT INJECTION 10 ML, CR/CU/SE/MN/ZN INJ 1 ML in AMINO AC/ELECTROLYTE/DE... IV SCH (18:00)
[2018-05-18] MEDS ORDERED: FAT EMULSION IV 20% 500 ML IV SCH (18:00)
[2018-05-18] MEDS: ERTAPENEM SODIUM 1 GM in NS MINI-BAG PLUS 50 ML IV SCH (18:03)
[2018-05-18] MEDS ORDERED: FUROSEMIDE 20 MG/2 ML VIAL (J1940) IV ONE (21:00)
[2018-05-19] MEDS: HumaLOG INSULIN (NovoLOG) PER UNIT SC SCH ×5 (00:36→23:39)
[2018-05-19 06:00] VITALS: BP 138/62
[2018-05-19 06:41] LABS: CALCIUM LEVEL 7.8 MG/DL (8.8-10.2); CREATININE FOR GFR 1.25 MG/DL (0.55-1.30); GLOMERULAR FILTRATION RATE 45.5 (>45); POTASSIUM SERUM 3.2 MEQ/L (3.5-5.1)
--- NOTE | 2018-05-19 06:51 | IPN ---
DATE: 05/18/2018 HISTORY: The patient is now postoperative day #3 from exploratory laparotomy for a small bowel perforation associated with extensive carcinomatosis from ovarian cancer. She has a Clayton gastrostomy in place as well as a Luna catheter that goes through the stomach and into the small bowel perforation to try to establish a controlled fistula. She has generally done fairly well over the last 24 hours. She was finally moved out of the intensive care unit today. She remains on total parenteral nutrition. She did sit up at the bedside for an hour or so today. She does report that she has had some flatus and some loose stool today. Vital signs show that she has been afebrile over the last 24 hours with a pulse generally in the 90s to as high as 112. Her blood pressure is excellent and her room air oxygen saturations are in the low 90s. Intake and output shows that yesterday she had 2200 in with 1150 out. Yesterday her drains showed 575 from the Clayton tube and 25 from her Mateusz drain. This morning she had 15 mL from the Mateusz drain and has had 380 mL out through the Clayton tube. Her urine output has been good. Her weight is actually up approximately 5-6 kg since admission. PHYSICAL EXAMINATION: The patient is alert and oriented. She appears fairly comfortable. Heart exam shows a regular rhythm at about 110. The lungs are generally clear. The abdomen is somewhat distended. She does have a few bowel sounds present. Her Clayton tube is draining some bilious fluid. The Mateusz drain on the right side has only a small amount of serous fluid in the suction container. She has some persistent lower extremity edema. Laboratory studies today show a white count of 14,000 with a hemoglobin of 8, hematocrit of 23 and platelet count of 108,000. Her chemistry profile showed a sodium of 143, potassium 3.7, chloride of 114, CO2 of 19, BUN of 28, creatinine 1.3 and a glucose of 126. IMPRESSION: The patient overall appears to be fairly stable from her perforation. She remains on ertapenem 1 gram daily and is now on total parenteral nutrition starting day #2 through her Jstkof-U-Knpm. She has had some return of bowel function. There is no sign of any leakage via her Mateusz drain and her Clayton tube seems to be working well. PLAN: The patient will be allowed some sips of clear liquids. Her total parenteral nutrition and antibiotics will be continued. She was encouraged to be up out of bed and to ambulate. We will consider placement of a PICC line when this opportunity presents itself. We will use the Eccnam-X-Ljpp for TPN, but she is receiving other medications as well. SINCERE
--- NOTE | 2018-05-19 07:06 | IPN ---
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 She was treated by placing a Luna catheter through the stomach and into the small bowel perforation to try to create a controlled fistula. A Claytno gastrostomy tube was also placed as well as a Mateusz drain in the right midabdomen to drain the area of the previous leak. She has generally done pretty well overnight. She remains in the intensive care unit. She has required a small amount of pressor and we have been using Levophed at a low dose. She has also been receiving significant fluid resuscitation with normal saline at 200 mL/hour since surgery. Her blood pressure has been coming up nicely. She is alert and oriented. Her urine output has been low but steady. Vital signs show that she has been afebrile since surgery. Her pulse has been in the 90s to low 100s. Blood pressure has most recently been in the 1-teens to 120s. Intake and output shows that since admission she has had 3300 in with 275 out yesterday. She has been having a urine output of about 30 mL/hour. PHYSICAL EXAMINATION: Physical exam shows a tired-appearing pale pleasant woman. She does not appear to be in any great distress at this time. She is alert and responsive. Heart exam shows a regular rhythm at about 100. The lungs show bilateral breath sounds. The abdomen appears slightly protuberant. Her right sided Mateusz drain has a small amount of lightly pink serous fluid in the bulb. Her Clayton tube is draining a small amount of bilious fluid. She has a rare bowel sound present on auscultation. Dressings are dry. Laboratory studies done that this afternoon showed a white count of 18,000, hemoglobin 9, hematocrit of 29 and platelet count of 121,000. Differential count showed 84% neutrophils, 8 bands and 1 lymphocytes with 7 monocytes. Chemistry profile showed a sodium of 139, potassium 4.3, chloride of 110, CO2 of 19, BUN of 24, creatinine 1.54 and a glucose of 95. Protein is 4.6 with an albumin of 1.6. IMPRESSION: Overall, the patient appears to be doing fairly well. She is fairly comfortable on her current medications. Her Clayton tube appears to be functioning. Blood pressure is improving with additional hydration and the nurse reports she has been backing off slightly on the low-dose Levophed. PLAN: We will continue to wean her Levophed as able. I will cut back on her IV fluid now that her blood pressure has been coming up. We will continue her ertapenem. She was encouraged to perform incentive spirometry and be out of bed as able. We will need to start some intravenous nutrition tomorrow given her uncertain time to restart any sort of oral intake. MTDD
--- NOTE | 2018-05-19 07:07 | IPN ---
DATE: 05/17/2018 HISTORY: The patient is now postop day #2 from laparotomy and control of a small bowel perforation from metastatic ovarian carcinoma. She remains in the intensive care unit. She has been successfully weaned off her Levophed. Her IV fluid is running at basically maintenance rate. She reports that she has been out of bed. She is fairly comfortable and is now using small doses of fentanyl as needed for pain. She apparently was having some adverse reaction to the Dilaudid with images of people being injured when she closed her eyes. She has tolerated a few ice chips. Vital signs: Show that she has been afebrile over the last 24 hours. Pulse has been up a bit into the 110s to 120s at times. Her blood pressure is improved and has generally remained in the 110s to 120s systolic. Her room air saturation is good. Intake and output shows that yesterday she had almost 4 liters in with 800 out. She had 100 mL recorded from her Clayton tube with 105 from the Mateusz drain. Physical exam shows that she is alert. She reports today that she has decided on a do not resuscitate order and has been filling out a Medical Orders for Life-Sustaining Treatment (MOLST) form. Heart exam shows a regular rhythm. The lungs are clear. The abdomen is mildly protuberant. Her drains are in place. There is bilious fluid draining from her Clayton tube and only some serous fluid from her Mateusz. Her incision is dressed and the dressing is dry. She has some persistent edema in the lower extremities. Laboratory studies show today a white count of 16, hemoglobin of 8, hematocrit of 25 and a platelet count of 110,000. Differential count shows 90% neutrophils, 2% lymphocytes, and 7% monocytes. Chemistry profile shows a sodium of 140, potassium 3.9, chloride 110, CO2 of 19, BUN of 24, creatinine 1.4, and a glucose of 76. IMPRESSION: The patient is doing well now 2 days postop from control of her small bowel perforation. She has decided to institute a DO NOT RESUSCITATE (DNR) order, and I think this is entirely appropriate. I discussed some of the small issues of the MOLST form with her and also signed this for her. We will start her on total parenteral nutrition today to get her some calories so she can heal better. Her Clayton tube will remain to suction as will the Mateusz drain. She will remain on her ertapenem for now. I believe she can be moved to the floor and orders will be placed to transfer her to a medical-surgical floor. I will also put in order for her DNR order. SINCERE
[2018-05-19] MEDS: PANTOPRAZOLE 40MG INJ (PROTONIX) (C9113) IV SCH (08:00)
[2018-05-19] MEDS: ENOXAPARIN 40 MG/0.4 ML SYRINGE (J1650) SC SCH (08:01)
[2018-05-19] MEDS: KETOROLAC 30 MG/ML VIAL (J1885) IV PRN ×3 (08:18→14:57)
[2018-05-19 10:00] VITALS: BP 164/76
[2018-05-19 14:00] VITALS: BP 179/79
[2018-05-19 18:00] VITALS: BP 143/85
[2018-05-19] MEDS ORDERED: FAT EMULSION IV 20% 500 ML IV SCH (18:00)
[2018-05-19] MEDS ORDERED: AMINO AC/ELECTROLYTE/DEX/CALC 2,000 ML IV SCH (18:00)
[2018-05-19] MEDS: ERTAPENEM SODIUM 1 GM in NS MINI-BAG PLUS 50 ML IV SCH (18:37)
[2018-05-19] MEDS: SODIUM CHLORIDE 0.9% INJ 10 ML SYR IV SCH (18:39)
[2018-05-19 22:00] VITALS: BP 172/82
[2018-05-19 23:00] VITALS: BP 158/62
[2018-05-19] MEDS ORDERED: FUROSEMIDE 20 MG/2 ML VIAL (J1940) IV ONE (23:15)
[2018-05-19] MEDS ORDERED: ACETAMINOPHEN 325 MG/10.15 ML UDC JT PRN (23:15)
[2018-05-20 02:00] VITALS: BP 147/71
[2018-05-20 06:00] VITALS: BP 143/69
[2018-05-20] MEDS: HumaLOG INSULIN (NovoLOG) PER UNIT SC SCH ×3 (06:09→18:26)
[2018-05-20 06:20] LABS: EOS % 0.1 % (0.0-3.0); HEMATOCRIT 21.5 % (36.0-47.0); LYMPH # 0.5 10^3/uL (1.5-4.5); LYMPH % 7.1 % (24.0-44.0); MEAN CORPUSCULAR HEMOGLOBIN 28.1 pg (27.0-33.0); MEAN CORPUSCULAR HGB CONC 32.6 g/dl (32.0-36.5); MEAN CORPUSCULAR VOLUME 86.3 fl (80.0-96.0); MONO # 0.9 10^3/uL (0.0-0.8); MONO % 12.7 % (0.0-5.0); NEUTROPHILS # 5.9 10^3/uL (1.8-7.7); NEUTROPHILS % 79.6 % (36.0-66.0); PLATELET COUNT, AUTOMATED 141 10^3/uL (150-450); RED BLOOD COUNT 2.49 10^6/uL (4.00-5.40); WHITE BLOOD COUNT 7.4 10^3/uL (4.0-10.0)
[2018-05-20 06:47] LABS: ALBUMIN 1.4 GM/DL (3.2-5.2); BILIRUBIN,TOTAL 0.3 MG/DL (0.2-1.0); CALCIUM LEVEL 7.8 MG/DL (8.8-10.2); CREATININE FOR GFR 1.14 MG/DL (0.55-1.30); GLOMERULAR FILTRATION RATE 50.6 (>45); POTASSIUM SERUM 2.9 MEQ/L (3.5-5.1); TOTAL PROTEIN 5.5 GM/DL (6.4-8.2)
--- NOTE | 2018-05-20 07:12 | IPN ---
DATE: 05/19/2018 HISTORY: The patient is now postop day #4 from exploratory laparotomy to address a perforation of the small bowel in the face of extensive carcinomatosis with ovarian cancer. She has been taking a few sips of clear liquids, though her gastrostomy tube remains to suction. She reports that she had been more comfortable earlier in the day and is a little more sore now. Vital signs: Show that she has had a low grade temperature up to a max of 100.1 this evening. She had been afebrile until this point. Her pulse is in the high 80s to 110s. Blood pressure is actually a little high, and her room air oxygen saturations are normal. Intake and output shows that she has had 3800 recorded in today with 1900 recorded out. Her urine output is listed as 1250 with 650 from her Mateusz drain and Clayton tube. The Mateusz drain has only a minimal amount of fluid at 30 mL. PHYSICAL EXAMINATION: Shows that the patient appears pleasant and fairly comfortable. She is alert and oriented. Heart exam shows a regular rhythm at about 100. The lungs show a few faint expiratory wheezes, particularly on the right. The abdomen seems distended, particularly in the lower quadrants. The midline dressing is dry. Her Clayton tube has some bilious fluid in the drainage container. The Mateusz drain on the right has a minimal amount of clear serous fluid in the bulb. The lower abdomen is relatively firm. She has perhaps a few soft faint bowel sounds but is fairly quiet overall. Her lower extremity edema seems improved, and she has thromboembolism deterrents (TEDs) and sequentials in place. Laboratory studies include a medical profile today that showed a sodium of 142, potassium 3.2, chloride 112, CO2 of 19, BUN of 36, creatinine 1.25 and a glucose of 132. Her fingerstick blood sugars have been ranging between 122 and 141. IMPRESSION: The patient overall appears to be doing fairly well. She has gained some weight and her intake exceeds her output again today. With her total parenteral nutrition (TPN), she may be reabsorbing some of her third space fluid and some additional Lasix may be of benefit. PLAN: The patient will have repeat labs in the morning. I will obtain a chest x-ray and a KUB in the morning as well to look for pleural effusions and the pattern of her bowel air. I will consider additional Lasix in the morning as well. KISHORD
[2018-05-20] MEDS: ENOXAPARIN 40 MG/0.4 ML SYRINGE (J1650) SC SCH (08:31)
--- NOTE | 2018-05-20 08:32 | REP ---
Clinical: Chest pain. Possible fluid overload. Comparison: 05/15/2018. Findings: Poaymx-I-Fsor identified with tip in the SVC. Mediastinum and cardiac silhouette are stable. Bilateral lower lobe opacities (left greater than right) consistent with atelectasis/infiltrates and pleural effusions (left greater than right). Findings are increased when compared to 05/15/2018. Impression: Bibasilar opacities and pleural effusions (left greater than right) increased from prior examination. Differential diagnosis includes pulmonary edema. Electronically Signed by Jose Baldwin MD 05/20/2018 08:23 A
[2018-05-20] MEDS: PANTOPRAZOLE 40MG INJ (PROTONIX) (C9113) IV SCH (08:34)
--- NOTE | 2018-05-20 08:34 | REP ---
Clinical: Reassess bowel gas pattern. Technique: Single supine view of the abdomen and pelvis. Findings: Double-lumen catheter extends into the abdomen and pelvis. The bowel gas pattern is nonspecific. No organomegaly. No significant abnormal calcifications. Surgical myron noted. Skeletal structures are intact. Impression: Nonspecific bowel gas pattern. Postsurgical changes including double-lumen intraperitoneal catheter placement. Electronically Signed by Jose Badlwin MD 05/20/2018 08:25 A
[2018-05-20] MEDS: POTASSIUM CHLORIDE 10% LIQ 20 MEQ/15 ML UDC JT SCH ×3 (09:53→18:26)
[2018-05-20 10:00] VITALS: BP 140/63
[2018-05-20] MEDS: KETOROLAC 30 MG/ML VIAL (J1885) IV PRN (10:44)
[2018-05-20 14:00] VITALS: BP 155/74
[2018-05-20] MEDS ORDERED: FUROSEMIDE 20 MG/2 ML VIAL (J1940) IV ONE (17:00)
[2018-05-20 18:00] VITALS: BP 164/77
[2018-05-20] MEDS ORDERED: FAT EMULSION IV 20% 500 ML IV SCH (18:00)
[2018-05-20] MEDS ORDERED: AMINO AC/ELECTROLYTE/DEX/CALC 2,000 ML IV SCH (18:00)
[2018-05-20] MEDS: ERTAPENEM SODIUM 1 GM in NS MINI-BAG PLUS 50 ML IV SCH (18:27)
[2018-05-20] MEDS: SODIUM CHLORIDE 0.9% INJ 10 ML SYR IV SCH (18:28)
[2018-05-20 21:54] VITALS: BP 152/68
[2018-05-21 02:00] VITALS: BP 145/69
[2018-05-21] MEDS: HumaLOG INSULIN (NovoLOG) PER UNIT SC SCH ×5 (05:56→23:51)
[2018-05-21 06:00] VITALS: BP 156/71
[2018-05-21 08:04] LABS: HEMATOCRIT 30.8 % (36.0-47.0); MEAN CORPUSCULAR HEMOGLOBIN 28.6 pg (27.0-33.0); MEAN CORPUSCULAR HGB CONC 33.8 g/dl (32.0-36.5); MEAN CORPUSCULAR VOLUME 84.6 fl (80.0-96.0); PLATELET COUNT, AUTOMATED 189 10^3/uL (150-450); RED BLOOD COUNT 3.64 10^6/uL (4.00-5.40); WHITE BLOOD COUNT 8.5 10^3/uL (4.0-10.0)
[2018-05-21 08:11] LABS: HEMOGLOBIN 10.4 g/dl (12.0-15.5)
[2018-05-21 08:38] LABS: CALCIUM LEVEL 8.1 MG/DL (8.8-10.2); CREATININE FOR GFR 1.03 MG/DL (0.55-1.30); GLOMERULAR FILTRATION RATE 56.9 (>45); POTASSIUM SERUM 3.8 MEQ/L (3.5-5.1)
[2018-05-21] MEDS: ENOXAPARIN 40 MG/0.4 ML SYRINGE (J1650) SC SCH (09:38)
[2018-05-21] MEDS: PANTOPRAZOLE 40MG INJ (PROTONIX) (C9113) IV SCH (09:38)
[2018-05-21 10:00] VITALS: BP 155/74
[2018-05-21 14:00] VITALS: BP 173/79
--- NOTE | 2018-05-21 16:42 | REP ---
Procedure: PICC line insertion with Emanuel The procedure was performed under the direct supervision of Dr. Currie. The risks and benefits of the procedure were explained to the patient and informed consent was obtained. The right brachial vein was localized using ultrasound guidance. The skin was prepped and draped in a sterile fashion. 2% lidocaine was used as a local anesthetic. Using ultrasound guidance the brachial vein was cannulated and a 0.018 guidewire was inserted and advanced to the SVC using fluoroscopic guidance. The needle was removed and a 5.5 Irish dilator and peel-away sheath was inserted over the guide wire. A 5.5 Irish dual lumen catheter was cut to length of 38 cm. The dilator was removed and the catheter was inserted over the guide wire with the tip ending in the SVC. The peel-away sheath was removed and the catheter was flushed with heparinized saline as per Hospital protocol. The catheter was affixed to the skin and a sterile dressing was applied. The patient tolerated the procedure well and there were no immediate complications. 0.5 minutes of fluoro time was utilized for this procedure. Reviewed by FROILAN Cesar 05/21/2018 03:57 P Electronically Signed by Valdez Currie MD 05/21/2018 04:33 P
[2018-05-21 18:00] VITALS: BP 172/81
[2018-05-21] MEDS ORDERED: FAT EMULSION IV 20% 500 ML IV SCH (18:00)
[2018-05-21] MEDS ORDERED: MULTIVITAMIN -ADULT INJECTION 10 ML, CR/CU/SE/MN/ZN INJ 1 ML in AMINO AC/ELECTROLYTE/DE... IV SCH (18:00)
[2018-05-21] MEDS: SODIUM CHLORIDE 0.9% INJ 10 ML SYR IV SCH (18:24)
[2018-05-21 22:00] VITALS: BP 169/77
[2018-05-22 02:00] VITALS: BP 167/73
[2018-05-22] MEDS: HumaLOG INSULIN (NovoLOG) PER UNIT SC SCH ×2 (05:56→12:00)
[2018-05-22 06:00] VITALS: BP 139/67
--- NOTE | 2018-05-22 06:18 | IPN ---
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 She has a Clayton tube in the stomach to suction and also a Luna catheter going through the stomach into the small bowel perforation to try to create a controlled fistula. She has a Mateusz drain going across the area of the perforation as well which has been draining almost nothing. She remains on total parenteral nutrition. She received two units of packed red blood cells yesterday which she tolerated well. VITAL SIGNS: The patient has been afebrile over the last 24 hours. Her pulse today is down somewhat into the 80s. Her blood pressure is good if not actually a little elevated and her room air oxygen saturations are fine. Intake and output shows that yesterday she had 3300 in with 5300 out. She had received a dose of Lasix in the midst of her blood transfusions. Her Clayton tube remains to suction and she has 1100 recorded yesterday out of her tube. The Mateusz had only 15 mL yesterday. PHYSICAL EXAMINATION: General: The patient is sitting up in a chair at the bedside. Her was present. She is alert and oriented. She denies any significant pain. Heart: Heart exam shows a regular rhythm. Lungs: The lungs show good breath sounds. Abdomen: The abdomen remains somewhat protuberant. Her Mateusz drain has only a few mLs of clear watery serous fluid. The Clayton tube has some lightly bilious fluid. LABORATORY DATA: Laboratory studies today include a CBC showing a white count of 8, hemoglobin of 10, hematocrit of 31 and a platelet count of 185,000. Her hematocrit is commensurate with receipt of two units of packed red blood cells yesterday. Her chemistry profile shows a sodium of 142, potassium 3.8 which is up from 2.9 yesterday. Chloride is 110, CO2 is 21, BUN of 37, creatinine 1.0 and a glucose of 122. Her fingerstick blood sugars have been running between 114 and 145. IMPRESSION: The patient seems to be gaining some strength. She is tolerating the total parenteral nutrition (TPN) well. I believe the blood transfusion has helped bring down her heart rate and she is mobilizing some fluid as well. My concern currently is that she has a lot of return from her Clayton tube. I am letting her take some sips of clear liquids but clearly most if not all of this is returning through the Clayton tube. We had tried clamping this the other night and she developed emesis shortly thereafter. It is unclear if the Luna catheter in the small bowel is in the proximal jejunum near the tip of the Clayton tube or if it is more distal. It is possible that the balloon which is inflated could be contributing to some degree of obstruction. I will drop the balloon but leave the catheter in place for right now. The patient is due to have a peripherally inserted center catheter (PICC) line placed today. I will stop her antibiotics as she has shown no signs of any infection now six days postoperatively. I will continue her Lovenox. I will plan on getting a contrast study through the Clayton tube to see if I can determine the location of the Luna catheter in the small bowel relative to the Clayton tube and also look for evidence of obstruction. SINCERE
--- NOTE | 2018-05-22 06:24 | IPN ---
DATE OF VISIT: 05/20/2018 HISTORY OF PRESENT ILLNESS: The patient is now five days postoperative from exploratory laparotomy for a small bowel perforation from metastatic ovarian cancer. She had extensive involvement of the small and large bowel. Clayton tube was placed as well as a Luna catheter through the stomach into the small bowel to try to control the leak from the small bowel. She has generally been doing fairly well. VITAL SIGNS: She has been afebrile with the exception of a temperature to 100.1 on the night of May 19. Her pulse is in the 90s to low 100s. Intake and output shows that yesterday she had 4400 in with 2500 out. We did trial stopping the suction to the Clayton tube to see if she would tolerate some liquids and she developed emesis very shortly thereafter and her Clayton tube was put back to suction. She is being allowed to take some sips of clears and this is coming out through her Clayton tube. PHYSICAL EXAMINATION: The patient is lying quietly in bed. She appears fairly comfortable but pale. She is alert and oriented. HEART: Heart exam shows a regular rhythm. LUNGS: The lungs show good breath sounds anteriorly. ABDOMEN: The abdomen is somewhat protuberant. Her Mateusz drain has only minimal serous fluid. The Luna catheter in the right upper quadrant is plugged. The Clayton tube is draining some lightly green fluid. She does have some bowel sounds present. She is still reporting some small bowel movements and flatus. LABORATORY DATA: Laboratory studies include a CBC showing a white count of 7, hemoglobin 7, hematocrit 22 and a platelet count of 141,000. Her chemistry profile shows a sodium of 142, potassium 2.9, chloride 109, CO2 of 22, BUN of 34, creatinine 1.1 and glucose of 136. Total protein is 5.5 with an albumin of 1.4. IMPRESSION: The patient failed her trial of clamping the Clayton tube. She is tolerating her total parenteral nutrition (TPN). Her hematocrit has drifted down so that she now has a hematocrit of 22 with a hemoglobin of 7. Her potassium was quite low at 2.9 this morning as well. PLAN: The patient will be given some liquid potassium through the feeding port of her Clayton tube. I spoke with her about a blood transfusion and she is agreeable with this plan and we will plan to administer 2 units of packed red blood cells. I will give her a dose of Lasix after the first unit of blood has been completed. We will continue her total parenteral nutrition. We can probably take out her Luna catheter tomorrow after she has received her blood transfusion and been somewhat diuresed. SINCERE
[2018-05-22] MEDS: SODIUM CHLORIDE 0.9% INJ 10 ML SYR IV SCH (08:26)
[2018-05-22] MEDS: PANTOPRAZOLE 40MG INJ (PROTONIX) (C9113) IV SCH (08:27)
[2018-05-22] MEDS: ENOXAPARIN 40 MG/0.4 ML SYRINGE (J1650) SC SCH (08:27)
[2018-05-22 10:00] VITALS: BP 140/72
[2018-05-22] MEDS ORDERED: GASTROGRAFIN SOLUTION 30ML (Q9963) As Ordered ONE (10:57)
--- NOTE | 2018-05-22 12:05 | REP ---
Upper GI series of the gastrostomy tube is. History: Assess gastrostomy tube is placed at the time of recent surgery. CT study from May 15, 2018 showed bowel perforation in the setting of malignant ascites, peritoneal carcinomatosis from advanced ovarian malignancy. A gastrostomy tube was placed from the stomach into an adjacent perforated bowel loop in an attempt to control the perforation. A second standard gastro-duodenal G tube was placed. After discussion with Dr. Jones, it was decided to inject these catheters with dilute Gastrographin to assess their position. Fluoroscopy time associated with this exam was 1.5 minutes. Findings: We chose to inject the "gastroenteric fistula" catheter first. This catheter exits the right abdomen. It is a Luna catheter. Fluoroscopic images obtained during dilute Gastrographin injection of this catheter demonstrate that the catheter tip is within and opacifies the transverse colon. Contrast is followed distally to the rectum. No extravasation is seen Second, we injected the gastroduodenal catheter which exits the abdominal wall on the left. Most of the injected contrast with disc catheter evaluation enters the stomach from Moni proximal side hole. Contrast can be seen exiting the stomach through the pylorus and opacifying the C-loop. The internal tip of this catheter is in the distal duodenum essentially at the ligament of Treitz. Again no extravasation is seen. Impression: The "gastroenteric fistula catheter" tip is noted to be within the transverse colon. The tip of the gastroduodenal tube is essentially at the ligament of Treitz. No extravasation is seen with either contrast catheter injection. Findings were telephoned to Dr. Jones at the time of the study. Electronically Signed by Kevin Gauthier MD 05/22/2018 11:56 A
[2018-05-22 14:00] VITALS: BP 139/80
[2018-05-22 18:00] VITALS: BP 160/71
[2018-05-22] MEDS ORDERED: HumaLOG INSULIN (NovoLOG) PER UNIT SC SCH (18:00)
[2018-05-22] MEDS ORDERED: AMINO AC/ELECTROLYTE/DEX/CALC 2,000 ML IV SCH (18:00)
[2018-05-22] MEDS ORDERED: FAT EMULSION IV 20% 500 ML IV SCH (18:00)
[2018-05-22 22:00] VITALS: BP 155/72
--- NOTE | 2018-05-23 00:04 | IPN ---
DATE: 05/22/2018 HISTORY: The patient is now postop day #7 from an exploratory laparotomy for a bowel perforation in the face of extensive ovarian carcinomatosis. She remains on total parenteral nutrition. Her antibiotics were discontinued yesterday. She denies much pain. She tolerated removal of her Luna catheter yesterday and has been voiding acceptably. She has had several small loose bowel movements. Vital signs: The patient has been afebrile with maximum temperature (T max) of 99.5 yesterday evening. Her pulse in the 80s and 90s. Blood pressure is good with a room air oxygen saturation that is normal. Intake and output shows that yesterday she had 2300 in with 3000 out. Yesterday she had almost 2 liters out of her Clayton tube, which has been on suction. She has 560 mL of oral fluids recorded. Her Mateusz drain had only 25 mL of drainage. PHYSICAL EXAMINATION: Patient is sitting up in the bed and appearing fairly comfortable. She is breathing easily. Heart exam shows a regular rhythm. The lungs are clear. The abdomen is fairly soft and flat. Her midline incision is healing well. Her drain sites are clean. LABORATORY STUDIES: The patient had no new labs today. IMAGING: The patient was sent down for a fluoroscopic study with contrast through her Luna catheter which goes into the intestinal perforation and also the Clayton tube to better ascertain their position. This was coordinated with Dr. Gauthier of radiology. On injection of the Luna catheter in the right upper quadrant, it is discovered that this catheter actually is within the transverse colon. Contrast flowed readily down to the rectum. With injection of contrast into the Clayton tube, the stomach and duodenum are opacified. The contrast appears to flow acceptably distally. The patient does report that she vomited a large amount of bilious fluid on return to the floor after the tube had been off suction for a time. IMPRESSION: The patient is generally healing well from her surgery. Her perforation has been controlled. Her nutrition has improved with total parenteral nutrition, and I believe the blood transfusion has helped her strength. I am somewhat concerned that she has been unable to tolerate the sips of clear liquids when the tube was not on suction and that she vomited today after the tube had been off suction for only a short time. I am a little concerned that she may have an underlying bowel obstruction. PLAN: The patient's Mateusz drain will be removed. I will let her have her sips of clear liquids up to 250 mL every 8 hours tonight but tomorrow we will try again clamping the Clayton tube. It may be that the balloon is causing an issue as the tube is somewhat distal, and I will drop the balloon on the Clayton tube tomorrow as well. The drain that goes through her stomach and into the perforation in her transverse colon will be left for now to allow a fistula to form to avoid leakage when the tube is removed. I will check her labs again tomorrow. SINCERE
[2018-05-23 02:00] VITALS: BP 162/72
[2018-05-23 06:00] VITALS: BP 157/76
[2018-05-23] MEDS: SODIUM CHLORIDE 0.9% INJ 10 ML SYR IV SCH (09:00)
[2018-05-23 10:00] VITALS: BP 171/79
[2018-05-23] MEDS: PANTOPRAZOLE 40MG INJ (PROTONIX) (C9113) IV SCH (10:07)
[2018-05-23] MEDS: ENOXAPARIN 40 MG/0.4 ML SYRINGE (J1650) SC SCH (10:09)
[2018-05-23 10:57] LABS: BASO % 0.6 % (0.0-1.0); EOS % 0.6 % (0.0-3.0); HEMATOCRIT 30.2 % (36.0-47.0); HEMOGLOBIN 10.5 g/dl (12.0-15.5); LYMPH # 0.6 10^3/uL (1.5-4.5); LYMPH % 8.7 % (24.0-44.0); MEAN CORPUSCULAR HEMOGLOBIN 31.8 pg (27.0-33.0); MEAN CORPUSCULAR HGB CONC 34.8 g/dl (32.0-36.5); MEAN CORPUSCULAR VOLUME 91.5 fl (80.0-96.0); MONO # 1.3 10^3/uL (0.0-0.8); MONO % 19.7 % (0.0-5.0); NEUTROPHILS # 4.3 10^3/uL (1.8-7.7); NEUTROPHILS % 67.6 % (36.0-66.0); PLATELET COUNT, AUTOMATED 322 10^3/uL (150-450); WHITE BLOOD COUNT 6.3 10^3/uL (4.0-10.0)
[2018-05-23 12:44] LABS: ALBUMIN 1.6 GM/DL (3.2-5.2); ALT/SGPT 17 U/L (12-78); BILIRUBIN,TOTAL 0.4 MG/DL (0.2-1.0); BLOOD UREA NITROGEN 35 MG/DL (7-18); CALCIUM LEVEL 8.2 MG/DL (8.8-10.2); CARBON DIOXIDE LEVEL 22 MEQ/L (21-32); CHLORIDE LEVEL 109 MEQ/L (98-107); CREATININE FOR GFR 0.91 MG/DL (0.55-1.30); GLOMERULAR FILTRATION RATE > 60.0 (>45); GLUCOSE, FASTING 133 MG/DL (70-100); POTASSIUM SERUM 3.5 MEQ/L (3.5-5.1); SODIUM LEVEL 141 MEQ/L (136-145); TOTAL PROTEIN 6.1 GM/DL (6.4-8.2)
[2018-05-23 14:00] VITALS: BP 159/74
[2018-05-23 18:00] VITALS: BP 158/68
[2018-05-23] MEDS ORDERED: FAT EMULSION IV 20% 500 ML IV SCH (18:00)
[2018-05-23] MEDS ORDERED: AMINO AC/ELECTROLYTE/DEX/CALC 2,000 ML IV SCH (18:00)
[2018-05-23 22:00] VITALS: BP 168/74
[2018-05-24 02:00] VITALS: BP 152/69
[2018-05-24 06:00] VITALS: BP 156/71
[2018-05-24] MEDS: PANTOPRAZOLE 40MG INJ (PROTONIX) (C9113) IV SCH (07:35)
[2018-05-24] MEDS: ENOXAPARIN 40 MG/0.4 ML SYRINGE (J1650) SC SCH (07:35)
[2018-05-24] MEDS: SODIUM CHLORIDE 0.9% INJ 10 ML SYR IV SCH (07:36)
[2018-05-24 10:00] VITALS: BP 171/79
[2018-05-24 14:00] VITALS: BP 178/85
--- NOTE | 2018-05-24 17:05 | IPN ---
DATE: 05/23/2018 HISTORY: The patient presented for a bowel perforation eight days prior. She has been making good progress. She has gained some strength with total parenteral nutrition. She has been tolerating some sips of clear liquids. Vital signs show that she has been afebrile over the past 24 hours. Her pulse is in the 90s to about 100. Blood pressure is good and her room air oxygen saturations are normal. Intake and output show that she has had 750 recorded in with 2400 out. She has had several small volume bowel movements. PHYSICAL EXAMINATION: The patient is alert and appears fairly comfortable. She has been up walking more. Heart examination shows a regular rhythm. The lungs are clear. The abdomen shows that her midline incision is healing well. The right upper quadrant drain site is clean and her Clayton tube site is also clean. The abdomen is generally flat with some bowel sounds present. LABORATORY STUDIES: Show a white count of 6, hemoglobin 10, hematocrit 30 and a platelet count of 322,000. Differential count shows 68% neutrophils, 9% lymphocytes and 20% monocytes. Chemistry profile shows a sodium of 141, potassium 3.5, chloride 109, CO2 of 22, BUN of 35, creatinine 0.9, and a glucose of 133. Her total protein is up to 6.1 with an albumin of 1.6. IMPRESSION: Patient has been making some progress. She appears more comfortable. Her nutritional parameters have improved somewhat and her white blood cell count is down to normal. PLAN: We will try clamping her gastrostomy (G) tube which has been to suction. She will continue her sips of clear liquids up to 250 mL every eight hours. If she can tolerate this, we will then consider advancing her diet. Her total parenteral nutrition (TPN) will be continued. [facility] CENTERDuy
--- NOTE | 2018-05-24 17:08 | IPN ---
DATE: 05/24/2018 HISTORY: The patient is now 9 days postop from her exploratory laparotomy for a bowel perforation. She has a Luna catheter going into the stomach and then out through the stomach into the area of the perforation in the transverse colon to try to create a controlled fistula. She has a Clayton tube in place. She tolerated her sips of clear liquids overnight. She has had one episode of a minimal amount of emesis after some coughing earlier today when she had some phlegm. Otherwise she has been feeling good. She is eager to try some food. She remains on her total parenteral nutrition (TPN) through her peripherally inserted central catheter (PICC) line. Vital signs: Show her to be afebrile with a good pulse and blood pressure. Intake and output shows that she has been mobilizing fluid, and her weight has come down approximately 4 kg, down just about to her admission weight, actually slightly below her admission weight over the last few days. Her urine output has been good, though we are not measuring it as carefully. PHYSICAL EXAMINATION: The patient appears alert and comfortable. She reports no pain. Heart exam shows a regular rhythm. Her incision is clean. Her drain sites are clean. The abdomen is perhaps mildly protuberant, but she has some bowel sounds. IMPRESSION: Patient is doing well. She tolerated having her Clayton gastrostomy tube clamped overnight with one minimal episode of some emesis today after a spell of coughing. PLAN: I will change her Clayton tube to a plain gastrostomy tube to remove the portion that is within the small bowel to eliminate the possibility that this would cause difficulties with her eating. The other tube will be left plugged. I will let her advance her diet as tolerated. I advised her to avoid any fibrous or raw vegetables and told her that she should generally stick with soft foods or even start with full liquids. She should chew well. The TPN will be continued overnight. I did change the tubes without incident by removing the Clayton tube and then gently inserting an 18-gauge replacement G-tube into the stomach. The balloon was inflated appropriately. The tube was inserted to approximately 3- 1/2 cm at the skin. She tolerated this well. [facility]
[2018-05-24 18:00] VITALS: BP 141/75
[2018-05-24] MEDS ORDERED: AMINO AC/ELECTROLYTE/DEX/CALC 2,000 ML IV SCH (18:00)
[2018-05-24] MEDS ORDERED: FAT EMULSION IV 20% 500 ML IV SCH (18:00)
[2018-05-24 22:00] VITALS: BP 133/61
[2018-05-25 06:00] VITALS: BP 155/69
[2018-05-25] MEDS ORDERED: SODIUM CHLORIDE 0.9% INJ 10 ML SYR IV PRN (08:15)
[2018-05-25] MEDS: ENOXAPARIN 40 MG/0.4 ML SYRINGE (J1650) SC SCH (08:25)
[2018-05-25] MEDS: PANTOPRAZOLE 40MG INJ (PROTONIX) (C9113) IV SCH (08:25)
[2018-05-25 10:00] VITALS: BP 160/73
[2018-05-25 14:00] VITALS: BP 141/79
[2018-05-25 18:00] VITALS: BP 130/74
[2018-05-25] MEDS: SODIUM CHLORIDE 0.9% INJ 10 ML SYR IV SCH (18:40)
[2018-05-25 22:00] VITALS: BP 144/67
[2018-05-26 02:00] VITALS: BP 159/68
[2018-05-26 06:00] VITALS: BP 140/64
[2018-05-26] MEDS: SODIUM CHLORIDE 0.9% INJ 10 ML SYR IV SCH (06:00)
[2018-05-26] MEDS: PANTOPRAZOLE 40MG INJ (PROTONIX) (C9113) IV SCH (08:28)
[2018-05-26] MEDS: ENOXAPARIN 40 MG/0.4 ML SYRINGE (J1650) SC SCH (09:00)
[2018-06-08] MEDS ORDERED: LASI20TA3 PO (11:26)
--- NOTE | 2018-06-27 07:54 | DSES ---
DATE OF ADMISSION: 05/15/2018 DATE OF DISCHARGE: 05/26/2018 ADMITTING DIAGNOSIS: Perforated viscus in the face of stage IV ovarian carcinoma with carcinomatosis currently undergoing chemotherapy. 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 She had been diagnosed with ovarian cancer in 2017. She underwent an bilateral salpingo-oophorectomy with omentectomy and debulking of tumor. She was treated with chemotherapy. She has been working her at that way through various types of chemotherapy and is currently on cisplatin and gemcitabine for chemotherapy. This is apparently considered fourth line therapy. She presented to the emergency department having developed severe pain in the epigastrium at about noon on the . This was of sudden onset. The patient has been undergoing periodic paracenteses for ascites which is occurred and is felt to be related to her underlying of carcinomatosis. In the emergency department she underwent evaluation with some laboratory studies and a CT scan. The labs showed a significant elevation of her white blood cell count to 18,000 with 97% neutrophils. Her protein and albumin were noted to be low. The CT scan revealed a small amount of free intraperitoneal air with some ascites noted and some parietal peritoneum that was thickened. An air collection was noted along the greater curve of the stomach suggesting the possibility that this was a site for perforation. I was consulted and the patient was admitted to undergo urgent surgery for her perforated viscus. HOSPITAL COURSE: The patient was taken to the operating room on at about 7 o'clock in the evening. At exploration she was found to have extensive metastatic disease with significant involvement of the bowel. There was a small perforation that appeared to arise in the proximal jejunum in an area between the bowel and the greater curve of the stomach. Initially a laparoscopy was performed followed by laparotomy with debridement of peritonitis. A Clayton gastrojejunal tube was inserted. A gastrojejunal fistula was also created by passing a Luna catheter into the stomach through the anterior wall and then out through the greater curve and into the perforation in the bowel to try to create a controlled fistula between the bowel and the stomach. Some sutures were placed to close these two structures together around the Luna. The patient was continued on antibiotics postoperatively. She was provided with analgesics and antiemetics as necessary. The patient did have some postoperative hypotension that was treated with intravenous Levophed. This was gradually weaned as able. She was continued on some maintenance IV fluid. Her Clayton tube was continued to low intermittent suction. The patient did decide to institute a do not resuscitate order on postop day #2. The patient was started on total parenteral nutrition for support. She received some additional Lasix to mobilize some third space fluid. A trial was made of clamping the Clayton tube which she initially failed. She did receive 2 units of packed red blood cells when her blood count had dropped to 22 with a hemoglobin of seven. Following some diuresis a fluoroscopic study of her drains in the abdomen showed that the Clayton tube was in good position was in the jejunum. However, the Luna catheter that was thought to be going through the stomach and into a loop of small bowel actually went through the stomach and into the transverse colon. This was very clearly seen on the contrast study. There was however, no obvious obstruction seen. Therefore, the balloon in the Clayton tube was decreased and she was started on some sips of clear liquid. Her diet was gradually advanced and she tolerated this well. On postop day #9 her Clayton tube was removed and a plain single-lumen gastrostomy tube was inserted through this site into the stomach. The drain between the stomach and colon was left in place but this was clamped and not to suction. The patient continued to do well and was discharged home on May 26, 2018. FINAL DIAGNOSES: 1. Stage IV ovarian carcinoma with carcinomatosis. 2. His transverse colon perforation secondary to extensive carcinomatosis with recent chemotherapy. PROCEDURES PERFORMED: 1. Laparoscopy, laparotomy with debridement of peritonitis, insertion of Clayton gastrojejunal tube, creation of gastrojejunal later discovered to be gastrocolonic fistula with placement of gastrojejunal later discovered to be gastrocolonic tube, lysis of adhesions was also performed. OTHER PROCEDURES: The patient received intravenous pressor support for hypotension. She also had total parenteral nutrition. DISPOSITION: She was discharged home on May 26, 2018. She was not provided any new medications. She was to continue her atorvastatin, calcium and vitamin D, Lovenox, losartan and multivitamin, olanzapine Ondansetron, prochlorperazine, Senna and vitamin D as before. She was advised against any strenuous activity or lifting greater than 25 pounds. She was to be contacted by my office to arrange a follow-up appointment. She could shower as desired. She was to leave Steri-Strips come off on their own. She was to wash gently around her two abdominal drains and dressed with drain sponge daily.
== END 2018-05-26 09:00 | disposition home or self-care (01) | DRG 329 ==
LOC: M ED 13:25 → M ED INP 18:05 → M ICU 23:39 → M MSPAV 05-18 14:54
PROVIDERS: ADMIT Surgery; ATTEND Surgery
PROC: 0DN80ZZ Release Small Intestine, Open Approach (ICD-10-PCS; 2018-05-15)
PROC: 0WJG4ZZ Inspection of Peritoneal Cavity, Percutaneous Endoscopic Approach (ICD-10-PCS; 2018-05-15)
PROC: 0D1 Gastrointestinal System, Bypass (ICD-10-PCS; principal; 2018-05-15 18:06)
PROC: 30233N1 Transfusion of Nonautologous Red Blood Cells into Peripheral Vein, Percutaneous Approach (ICD-10-PCS; 2018-05-20)
PROC: 02HV33Z Insertion of Infusion Device into Superior Vena Cava, Percutaneous Approach (ICD-10-PCS; 2018-05-21)
PROC: 3E0336Z Introduction of Nutritional Substance into Peripheral Vein, Percutaneous Approach (ICD-10-PCS; 2018-05-21)
DX: K63.1 Perforation of intestine (nontraumatic) (principal); K65.9 Peritonitis, unspecified; C56.9 Malignant neoplasm of unspecified ovary; R18.0 Malignant ascites; C78.6 Secondary malignant neoplasm of retroperitoneum and peritoneum; Z79.899 Other long term (current) drug therapy; Z66 Do not resuscitate

== ENCOUNTER → 2018-05-21 | Outpatient (CLI) | payer MEDICARE, BC, OTHER ==
[~2018-05-21] MED LIST changes: +CALC-190 PO; +LIDOCAINE 1% MDV 20ML VIAL As Ordered ONE; +PROC25SU24 PR
== END ==
LOC: M RAD 11:30
PROVIDERS: ATTEND Advanced Practice Midwife
DX: C56.9 Malignant neoplasm of unspecified ovary (principal); C80.0 Disseminated malignant neoplasm, unspecified

== ENCOUNTER → 2018-06-27 | Outpatient (CLI) | payer MEDICARE, BC, OTHER ==
[~2018-06-27] MED LIST changes: +GASTROGRAFIN SOLUTION 30ML (Q9963) As Ordered ONE; +ISOVUE-370 76% 100ML VIAL (Q9967) As Ordered ONE; -LIDOCAINE 1% MDV 20ML VIAL As Ordered ONE; -PROC25SU24 PR
--- NOTE | 2018-06-27 20:01 | REP ---
CT ABDOMEN AND PELVIS WITH ORAL AND IV CONTRAST: TECHNIQUE: Axial contrast enhanced images from the lung bases to the pubic symphysis using 100 mL Isovue 370 intravenous contrast material with multiplanar reformations. Visualized lung bases demonstrate a small left pleural effusion. Several cysts are seen in the liver. Spleen is unremarkable as are the adrenal glands. The pancreas demonstrates no mass. There are bilateral renal cysts. There is no abdominal aortic aneurysm. Scattered small subcentimeter lymph nodes are seen throughout the periaortic region. There is no evidence of bowel obstruction with oral contrast extending throughout the small bowel into the colon. However, there is diffuse mesenteric infiltration and diffuse omental soft tissue thickening with some confluent soft tissue surrounding the stomach and transverse colon. There appears to be narrowing of the body of the stomach. The fundus of the stomach is distended with ingested material. Portions of the colon demonstrate surrounding soft tissue with wall thickening and luminal narrowing. There is diffuse mesenteric edema and a tiny amount of fluid is seen in the pericolic gutters. Urinary bladder is collapsed. IMPRESSION: Diffuse mesenteric infiltration and edema. Thickening of the omentum with areas of soft tissue thickening surrounding the body of the stomach and portions of the colon. There appears to be some degree of narrowing of the body of the stomach by this surrounding soft tissue. There also appears to be segmental narrowing of portions of the colon. However, there is no evidence of complete bowel obstruction. The narrowing in the stomach as well as in portions of the colon could cause a partial obstruction. Previously noted ascites has significantly improved with a tiny amount of perihepatic ascites and tiny amount of fluid in the pericolic gutters at this time. Small residual left pleural effusion has also improved. Electronically Signed by Valdez Currie MD 06/28/2018 12:32 A
== END ==
LOC: M RAD 15:36
PROVIDERS: ATTEND Internal Medicine Medical Oncology
DX: C56.9 Malignant neoplasm of unspecified ovary (principal); J90 Pleural effusion, not elsewhere classified; K76.89 Other specified diseases of liver
CPT/HCPCS: 74177; Q9963; Q9967

== ENCOUNTER 2018-06-28 09:50 | Outpatient (CLI) | payer MEDICARE, BC, OTHER ==
[~2018-06-28] VITALS: Ht 157.5 cm; Wt 52.2 kg
[2018-06-28] VITALS (8 sets, daily range): BP systolic 112–154; BP diastolic 60–82
[~2018-06-28 09:50] MED LIST changes: +ACETAMINOPHEN TAB 650MG DOSE (2X325MG) PO ONE; -GASTROGRAFIN SOLUTION 30ML (Q9963) As Ordered ONE; -ISOVUE-370 76% 100ML VIAL (Q9967) As Ordered ONE; +SODIUM CHLORIDE 0.9% INJ 10 ML SYR IV SCH; +diphenhydrAMINE 50 MG CAP PO ONE
[2018-06-28] MEDS ORDERED: FUROSEMIDE 20 MG/2 ML VIAL (J1940) IV ONE (10:00)
== END 2018-06-28 15:45 | disposition home or self-care (01) ==
LOC: M INFU 09:50
PROVIDERS: ATTEND Internal Medicine Medical Oncology
DX: D64.9 Anemia, unspecified (principal); C56.9 Malignant neoplasm of unspecified ovary
CPT/HCPCS: 36430; 96375; J1940; P9016

== ENCOUNTER 2018-07-12 07:59 | Emergency (ER) | payer MEDICARE, BC, OTHER ==
[~2018-07-12] VITALS: Ht 157.5 cm; Wt 48.6 kg
[~2018-07-12 07:59] MED LIST changes: -ACETAMINOPHEN TAB 650MG DOSE (2X325MG) PO ONE; -SODIUM CHLORIDE 0.9% INJ 10 ML SYR IV SCH; -diphenhydrAMINE 50 MG CAP PO ONE
--- NOTE | 2018-07-12 09:39 | REP ---
KUB: Single view. History: Abdomen pain. Comparison study: May 20, 2018. Findings: Bowel gas pattern is unremarkable. No large or small bowel dilation is seen. Flank stripes are intact. Psoas margins are symmetric. No mass organomegaly is appreciated. Impression: Unremarkable KUB. Electronically Signed by Kevin Gauthier MD 07/12/2018 09:29 A
[2018-07-12] MEDS ORDERED: PROC25SU24 PR (10:27)
[2018-07-12 10:45] VITALS: BP 108/56
== END 2018-07-12 10:50 | disposition home or self-care (01) ==
LOC: M ED 07:59
DX: R10.9 Unspecified abdominal pain (principal); C56.9 Malignant neoplasm of unspecified ovary; R11.10 Vomiting, unspecified; R19.7 Diarrhea, unspecified; Z98.890 Other specified postprocedural states; K63.1 Perforation of intestine (nontraumatic); Z88.0 Allergy status to penicillin; Z88.5 Allergy status to narcotic agent; Z79.899 Other long term (current) drug therapy